=== PATIENT | female | born 1940 | race Caucasian/White ===

== ENCOUNTER 2016-10-20 20:44 | Inpatient (IN) ==
[2016-10-20] MEDS ORDERED: 0.9 % SODIUM CHLORIDE 1,000 ML IV ONE ×2 (21:26→23:47)
[2016-10-20] MEDS ORDERED: ACETAMINOPHEN 325 MG TABLET PO ONE (21:27)
--- NOTE | 2016-10-20 22:00 | Emergency Department Note ---
Nausea/Vomiting/Diarrhea HPI - General Chief complaint: Nausea/Vomiting/Diarrhea Stated complaint: diarrhea, Time Seen by Provider: 10/20/16 21:06 Source: patient Mode of arrival: EMS Limitations: no limitations - History of Present Illness HPI Narrative: 75-year-old female is brought in by EMS. She states today she is very tired and thirsty. She states that yesterday she took some MiraLAX which was 1 cap full. She states after she took the MiraLAX she had a blowout of diarrhea. She states she was having bowel movements every 2 hours. She states she also vomited approximately the same amount of times. She states today she is no longer nauseated. She has not had a bowel movement. She has not vomited. She feels as though she is dehydrated and she is very lethargic. She has not had any falls but she has had some global weakness. She has not noticed any fevers. She states her family wanted her to come in because they were "sick of cleaning up after her ". She has some diffuse abdominal pain. She has had her gallbladder and her appendix removed. - Related Data Home Medications Medication Instructions Recorded Confirmed Antiarthritic Combination No.2 900 mg PO QDAY 03/26/16 04/30/16 [Glucosamine-Chondroitin] Ascorbic Acid [Vitamin C with Gabriela 500 mg PO QDAY 03/26/16 04/30/16 Hips] Cyclobenzaprine [Flexeril] 10 mg PO TID 03/26/16 04/30/16 Esomeprazole Magnesium [Nexium] 40 mg PO DAILY 03/26/16 04/30/16 Ezetimibe [Zetia] 10 mg PO DAILY 03/26/16 04/30/16 HYDROmorphone [Dilaudid] 2 mg PO Q6 03/26/16 04/30/16 Ipratropium/Albuterol Sulfate 1 puff INH PRN PRN 03/26/16 04/30/16 [Combivent] Losartan [Cozaar] 25 mg PO DAILY 03/26/16 04/30/16 Multivitamin [Multi-Day Vitamins] 1 each PO DAILY 03/26/16 04/30/16 Polyethylene Glycol 1000 500 gm MC PRN PRN 03/26/16 04/30/16 [Polyethylene Glycol] Pregabalin [Lyrica] 25 mg PO BID 03/26/16 04/30/16 Promethazine [Phenergan] 12.5 mg PO Q4HP PRN 03/26/16 04/30/16 Sennosides/Docusate Sodium 1 each PO PRN PRN 03/26/16 04/30/16 [Senna-Docusate Sodium Tablet] amLODIPine [Norvasc] 10 mg PO QDAY 03/26/16 04/30/16 busPIRone [Buspar] 10 mg PO BID 03/26/16 04/30/16 diphenhydrAMINE [Benadryl] 25 mg PO Q4HP PRN 04/30/16 04/30/16 Previous Rx's Medication Instructions Recorded Aspirin [Ecotrin] 325 mg PO BID #28 tab.ec 05/02/16 Cane 1 each MC 3-4XD #1 each 05/02/16 HYDROcodone/APAP 10/325MG [[place] 1 - 2 tab PO Q4H PRN #60 tablet 05/02/16 10/325Mg] Nitrofurantoin Macrocrystal 100 mg PO BID #10 capsule 05/03/16 [Macrodantin] Ondansetron HCl [Zofran ODT] 4 mg SL Q4-6HP PRN #10 tablet 09/19/16 Allergies Allergy/AdvReac Type Severity Reaction Status Date / Time Sulfa (Sulfonamide Allergy Intermediate Rash Verified 09/19/16 09:50 Antibiotics) [SULFA (SULFONAMIDE ANTIBIOTICS)] codeine [CODEINE] AdvReac Intermediate Nausea/Vomi Verified 09/19/16 09:50 ting hydrocodone [HYDROCODONE] AdvReac Intermediate Nausea/Vomi Verified 09/19/16 09: 50 ting latex [LATEX] AdvReac Intermediate Rash Verified 09/19/16 09:50 Review of Systems All systems ED: reviewed and negative except as stated. Past Medical History - Past Medical History Medical history: Reports: hypertension. Denies: diabetes Surgical history ED: Reports: appendectomy, cholecystectomy, hysterectomy, orthopedic, other (rotator cuff 08/22/16), other (trouble with bowel movements since colonoscopy 10 years ago. Cannot feel when she is having a bowel movement. 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 Absent: conjunctival injection - ENT ENT exam: normal oropharynx, mucous membranes dry - Neck Neck exam: Present: normal inspection, full ROM - Chest Chest inspection: Present: normal inspection, symmetric chest wall rise - Respiratory Respiratory exam: Present: normal lung sounds bilaterally - Cardiovascular Cardiovascular exam: Present: tachycardia, normal heart sounds - Abdominal Exam Abdominal exam: Present: soft, tenderness, normal bowel sounds. Absent: guarding, rebound Abdominal tenderness: Present: diffuse (worse in the lower quadrants), mild - Extremities Exam Extremities exam: Present: normal inspection, full ROM - Neurological Exam Neurological exam: Present: alert, oriented X3, CN II-XII intact - Psychiatric Psychiatric exam: Present: flat affect (lethargic) - Skin Skin exam: Present: warm, dry, intact Course Course Narrative: Sign out was given to Dr. iMchael conte and he will take over her care. Vital Signs Temperature 99.8 F H 10/20/16 20:45 Pulse Rate 101 H 10/20/16 20:45 Respiratory Rate 22 10/20/16 20:45 Blood Pressure 126/75 10/20/16 20:45 Pulse Oximetry (%) 100 10/20/16 20:45 Temperature 99.1 F H 10/20/16 22:13 Pulse Rate 102 H 10/20/16 20:50 Respiratory Rate 22 10/20/16 21:55 Blood Pressure 119/71 10/20/16 21:46 Pulse Oximetry (%) 98 10/20/16 20:50 Nausea/Vomiting/Diarrhea - Lab Data Result diagrams: 10/20/16 21:00 10/20/16 21:00 Disposition Pt seen by TECHNICAL ACCOUNT MANAGER/PA only: No Condition: Fair Referrals: Mohan Hamm [Primary Care Provider] -
[2016-10-20 22:24] LABS: Basophils # (Auto) 0 K/mcL (0.0-0.3); Basophils % (Auto) 0 % (0.0-2.0); Eosinophils # (Auto) 0 K/mcL (0.0-0.7); Eosinophils % (Auto) 0 % (0.0-7.0); Granulocytes % (Auto) 91.7 % (38.0-78.0); Lymphocytes # (Auto) 0.6 K/mcL (1.5-4.8); Lymphocytes % (Auto) 3.6 % (15.5-49.0); Mean Cell Volume 79.4 fL (80.0-100.0); Mean Corpuscular Hemoglobin 26.2 pg (26.0-34.0); Monocytes # (Auto) 0.7 K/mcL (0.1-0.9); Monocytes % (Auto) 4.7 % (1.0-12.0); Platelet Count 270 K/mcL (140-440); RBC 6.03 M/mcL (4.00-5.20); Red Cell Distribution Width 15.9 % (11.5-14.5)
[2016-10-20 22:43] LABS: ALT/SGPT 12 U/l (0-40); Albumin 4.2 gm/dL (3.2-5.2); Albumin/Globulin Ratio 1.4 (1.0-2.3); Alkaline Phosphatase 75 U/L (39-117); Blood Urea Nitrogen 22 mg/dl (8-23)
[2016-10-20] MEDS ORDERED: LEVOFLOXACIN 500 MG/100 ML BAG IV ONE (22:48)
[2016-10-20] MEDS ORDERED: cefTRIAXone 1 GM in DEXTROSE 5% IN WATER 50 ML IV ONE (23:02)
[2016-10-21 00:02] LABS: Appearance,Urine CLEAR; Bacteria,Urine 0 /hpf (0); Bilirubin,Urine NEG (NEG); Color,Urine AMBER; Glucose,Urine (UA) NEGATIVE (NEG); Leukocyte Esterase,Urine NEG /uL (NEG); Mucus,Urine FEW /hpf (0); Nitrate,Urine NEG (NEG); Protein,Urine NEG (NEG); Specific Gravity,Urine 1.013 (1.000-1.035); Urine Blood NEG mg/dL (<0.03); Urine Hyaline Cast 2 /lpf (0-2); Urine RBC 1 /hpf (0-1); Urine Squamous Epithelial Cell < 1 /hpf (0-4); Urine WBC 1 /hpf (0-4)
--- NOTE | 2016-10-21 00:26 | Emergency Department Note ---
Nausea/Vomiting/Diarrhea HPI - General Chief complaint: Nausea/Vomiting/Diarrhea Stated complaint: diarrhea, Time Seen by Provider: 10/20/16 21:06 Source: patient Mode of arrival: EMS Limitations: no limitations - History of Present Illness HPI Narrative: Nausea and vomiting. The diarrhea had ensued following MiraLAX 2 days ago. Yesterday she had significant amounts of diarrhea and incontinence causing frustration and difficulties for her self-care and family care. She comes to the emergency room weak, not really strong on her feet, and quite fatigued in appearance. In the emergency room initially was seen by nurse practitioner whose notes I have reviewed and agree and concur. Her labs came back with elevated white count. Also an elevated lactate. Her blood pressures were mildly low. She met the criteria for sepsis. Fluids and IV antibiotics were initiated. - Related Data Home Medications Medication Instructions Recorded Confirmed Antiarthritic Combination No.2 900 mg PO QDAY 03/26/16 10/20/16 [Glucosamine-Chondroitin] Ascorbic Acid [Vitamin C with Gabriela 500 mg PO QDAY 03/26/16 10/20/16 Hips] Cyclobenzaprine [Flexeril] 10 mg PO TID 03/26/16 10/20/16 Esomeprazole Magnesium [Nexium] 40 mg PO DAILY 03/26/16 10/20/16 Ezetimibe [Zetia] 10 mg PO DAILY 03/26/16 10/20/16 HYDROmorphone [Dilaudid] 2 mg PO Q6 03/26/16 10/20/16 Ipratropium/Albuterol Sulfate 1 puff INH PRN PRN 03/26/16 10/20/16 [Combivent] Losartan [Cozaar] 25 mg PO DAILY 03/26/16 10/20/16 Multivitamin [Multi-Day Vitamins] 1 each PO DAILY 03/26/16 10/20/16 Polyethylene Glycol 1000 500 gm MC PRN PRN 03/26/16 10/20/16 [Polyethylene Glycol] Pregabalin [Lyrica] 25 mg PO BID 03/26/16 10/20/16 Promethazine [Phenergan] 12.5 mg PO Q4HP PRN 03/26/16 10/20/16 Sennosides/Docusate Sodium 1 each PO PRN PRN 03/26/16 10/20/16 [Senna-Docusate Sodium Tablet] amLODIPine [Norvasc] 10 mg PO QDAY 03/26/16 10/20/16 busPIRone [Buspar] 10 mg PO BID 03/26/16 10/20/16 diphenhydrAMINE [Benadryl] 25 mg PO Q4HP PRN 04/30/16 10/20/16 Previous Rx's Medication Instructions Recorded Aspirin [Ecotrin] 325 mg PO BID #28 tab.ec 05/02/16 Cane 1 each MC 3-4XD #1 each 05/02/16 HYDROcodone/APAP 10/325MG [[place] 1 - 2 tab PO Q4H PRN #60 tablet 05/02/16 10/325Mg] Nitrofurantoin Macrocrystal 100 mg PO BID #10 capsule 05/03/16 [Macrodantin] Ondansetron HCl [Zofran ODT] 4 mg SL Q4-6HP PRN #10 tablet 09/19/16 Allergies Allergy/AdvReac Type Severity Reaction Status Date / Time Sulfa (Sulfonamide Allergy Intermediate Rash Verified 09/19/16 09:50 Antibiotics) [SULFA (SULFONAMIDE ANTIBIOTICS)] codeine [CODEINE] AdvReac Intermediate Nausea/Vomi Verified 09/19/16 09:50 ting hydrocodone [HYDROCODONE] AdvReac Intermediate Nausea/Vomi Verified 09/19/16 09: 50 ting latex [LATEX] AdvReac Intermediate Rash Verified 09/19/16 09:50 Past Medical History - Past Medical History Medical history: Reports: hypertension. Denies: diabetes Surgical history ED: Reports: appendectomy, cholecystectomy, hysterectomy, orthopedic, other (rotator cuff 08/22/16), other (trouble with bowel movements since colonoscopy 10 years ago. Cannot feel when she is having a bowel movement. 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 Absent: tenderness, lymphadenopathy - Chest Chest inspection: Present: symmetric chest wall rise. Absent: tenderness - Expanded Respiratory Exam Location: rales: Left, Right, Lower - Cardiovascular Cardiovascular exam: Present: regular rate, normal rhythm - Abdominal Exam Abdominal exam: Present: soft, tenderness (moderately severe throughout with more tenderness on the left side.), guarding. Absent: distention, rebound, rigidity, organomegaly, mass - Extremities Exam Extremities exam: Present: normal inspection. Absent: tenderness, pedal edema - Neurological Exam Neurological exam: Present: other (uite sleepy and restful with eyes closed most of the time but obeys most commands for movements of extremities, eyes, face, etc.) - Psychiatric Psychiatric exam: Present: depressed, flat affect - Skin Skin exam: Present: dry, intact, normal color Course Vital Signs Temperature 99.8 F H 10/20/16 20:45 Pulse Rate 101 H 10/20/16 20:45 Respiratory Rate 22 10/20/16 20:45 Blood Pressure 126/75 10/20/16 20:45 Pulse Oximetry (%) 100 10/20/16 20:45 Temperature 98.9 F 10/20/16 22:58 Pulse Rate 104 H 10/21/16 01:57 Respiratory Rate 17 10/21/16 01:57 Blood Pressure 123/83 10/21/16 01:16 Pulse Oximetry (%) 79 L 10/21/16 01:57 Nausea/Vomiting/Diarrhea - [facility] Narrative Medical decision making narrative: see H&P of this second note started by myself after midnight. In summary, sepsis intervention and reexamined and image the abdomen. - Lab Data Result diagrams: 10/20/16 21:00 10/20/16 21:00 Lab Results 10/20/16 10/20/16 10/20/16 Range/Units 21:00 21:00 21:00 WBC 15.3 H (4.5-11.0) K/mcL RBC 6.03 H (4.00-5.20) M/mcL Hgb 15.8 H (12.0-15.0) g/dL Hct 47.9 (36.0-48.0) % MCV 79.4 L (80.0-100.0) fL MCH 26.2 (26.0-34.0) pg MCHC 33.0 (31.0-36.0) g/dL RDW 15.9 H (11.5-14.5) % Plt Count 270 (140-440) K/mcL MPV 8.4 (7.4-10.4) fL Gran % 91.7 H (38.0-78.0) % Lymph % (Auto) 3.6 L (15.5-49.0) % [place] % (Auto) 4.7 (1.0-12.0) % Eos % (Auto) 0 (0.0-7.0) % Baso % (Auto) 0 (0.0-2.0) % Gran # 14.1 H (1.8-8.0) K/mcL Lymph # (Auto) 0.6 L (1.5-4.8) K/mcL [place] # (Auto) 0.7 (0.1-0.9) K/mcL Eos # (Auto) 0 (0.0-0.7) K/mcL Baso # (Auto) 0 (0.0-0.3) K/mcL Differential Comment Y VBG Lactic Acid 4.4 H* (0.5-2.2) mmol/L Sodium 136 (133-145) mmol/L Potassium 3.7 (3.3-5.1) mmol/L Chloride 98 (96-108) mmol/L Carbon Dioxide 15 L (22-30) mmol/L Anion Gap 23.0 H (8-16) BUN 22 (8-23) mg/dl Creatinine 1.2 H (0.6-1.1) mg/dl GFR Calculation 44 Glucose 190 H (70-105) mg/dL Calcium 9.2 (8.6-10.4) mg/dl Total Bilirubin 1.0 (0.0-1.0) mg/dL AST 16 (0-37) U/l ALT 12 (0-40) U/l Alkaline Phosphatase 75 (39-117) U/L Total Protein 7.1 (5.9-8.4) gm/dL Albumin 4.2 (3.2-5.2) gm/dL Globulin 2.9 (2.2-3.7) gm/dL Albumin/Globulin Ratio 1.4 (1.0-2.3) Urine Color Urine Appearance Urine pH (5.0-9.0) Ur Specific [place] (1.000-1.035) Urine Protein (NEG) mg/dL Urine Glucose (UA) (NEG) mg/dL Urine Ketones (NEG) mg/dL Urine Occult Blood (<0.03) mg/dL Urine Nitrate (NEG) Urine Bilirubin (NEG) mg/dL Urine Urobilinogen (NEG) mg/dL Ur Leukocyte Esterase (NEG) /uL Urine RBC (0-1) /hpf Urine WBC (0-4) /hpf Ur Squamous Epith Cells (0-4) /hpf Urine Bacteria (0) /hpf Hyaline Casts (0-2) /lpf Urine Mucus (0) /hpf Opiates Screen Methadone Propoxyphene & Metabol Methaqualone Barbiturate Screen Phencyclidine Screen Amphetamines Screen Benzodiazepines Screen Cocaine Screen Marijuana (THC) Screen Drug Screen Specimen 10/20/16 10/20/16 Range/Units 21:00 23:23 WBC (4.5-11.0) K/mcL RBC (4.00-5.20) M/mcL Hgb (12.0-15.0) g/dL Hct (36.0-48.0) % MCV (80.0-100.0) fL MCH (26.0-34.0) pg MCHC (31.0-36.0) g/dL RDW (11.5-14.5) % Plt Count (140-440) K/mcL MPV (7.4-10.4) fL Gran % (38.0-78.0) % Lymph % (Auto) (15.5-49.0) % [place] % (Auto) (1.0-12.0) % Eos % (Auto) (0.0-7.0) % Baso % (Auto) (0.0-2.0) % Gran # (1.8-8.0) K/mcL Lymph # (Auto) (1.5-4.8) K/mcL [place] # (Auto) (0.1-0.9) K/mcL Eos # (Auto) (0.0-0.7) K/mcL Baso # (Auto) (0.0-0.3) K/mcL Differential Comment VBG Lactic Acid (0.5-2.2) mmol/L Sodium (133-145) mmol/L Potassium (3.3-5.1) mmol/L Chloride (96-108) mmol/L Carbon Dioxide (22-30) mmol/L Anion Gap (8-16) BUN (8-23) mg/dl Creatinine (0.6-1.1) mg/dl GFR Calculation Glucose (70-105) mg/dL Calcium (8.6-10.4) mg/dl Total Bilirubin (0.0-1.0) mg/dL AST (0-37) U/l ALT (0-40) U/l Alkaline Phosphatase (39-117) U/L Total Protein (5.9-8.4) gm/dL Albumin (3.2-5.2) gm/dL Globulin (2.2-3.7) gm/dL Albumin/Globulin Ratio (1.0-2.3) Urine Color [place] Urine Appearance Clear Urine pH 5.0 (5.0-9.0) Ur Specific [place] 1.013 (1.000-1.035) Urine Protein Neg (NEG) mg/dL Urine Glucose (UA) Negative (NEG) mg/dL Urine Ketones 5/tr A (NEG) mg/dL Urine Occult Blood Neg (<0.03) mg/dL Urine Nitrate Neg (NEG) Urine Bilirubin Neg (NEG) mg/dL Urine Urobilinogen 4.0 A (NEG) mg/dL Ur Leukocyte Esterase Neg (NEG) /uL Urine RBC 1 (0-1) /hpf Urine WBC 1 (0-4) /hpf Ur Squamous Epith Cells < 1 (0-4) /hpf Urine Bacteria 0 (0) /hpf Hyaline Casts 2 (0-2) /lpf Urine Mucus Few (0) /hpf Opiates Screen Cancelled Methadone Cancelled Propoxyphene & Metabol Cancelled Methaqualone Cancelled Barbiturate Screen Cancelled Phencyclidine Screen Cancelled Amphetamines Screen Cancelled Benzodiazepines Screen Cancelled Cocaine Screen Cancelled Marijuana (THC) Screen Cancelled Drug Screen Specimen Cancelled Disposition Pt seen by GL ACCOUNTANT/PA only: No Clinical Impression: Colitis, Abnormal lung sounds Sepsis Qualifiers: Sepsis type: sepsis due to unspecified organism Qualified Code(s): A41.9 - Sepsis, unspecified organism Summary: Patient's labs came back with a leukocytosis plus a lactic acid of 4.4. With these findings and some brief mild hypotension and acting as ill as she did, she met the criteria for sepsis and was initiated with Levaquin and ceftriaxone , additional IV fluids. Her abdomen was rather acute pain diffusely and a CT scan was added. Patient thought she was ALLERGIC to iodine contrast and because of her nausea apparently refused oral contrast. So the CT scan result demonstrated "suggestion of colitis, most pronounced distal, which could be infectious, inflammatory, or ischemic in nature. Superimposed distal colonic diverticulitis difficult to entirely exclude. Possible mild ileus." She continued to have quite significant diarrhea in the emergency room. A C. difficile stool test was collected. On my exam she had crackles in her bases bilaterally but was in no respiratory distress, no tachypnea, no hypoxia, no JVD, and no pretibial edema. Review of the chest x-rayto me did not demonstrate fulminant or significant signs of CHF. It was felt that this could be followed up on serial exams inpatient and was not likely to be the primary cause of sepsis. Patient had an increase in her energy level and decrease in her weakness and very tired and lethargic state and asked for some oral fluids and was given some water around [address] scan results were back, case was discussed with hospitalist, Dr. Gillis, with agreement for admission. previous note by nurse practitioner was reviewed and I agree with her initial assessment and plan. Disposition: Xfer As Inpt ([facility]) Condition: Fair Referrals: Mohan Hamm [Primary Care Provider] -
[2016-10-21] MEDS ORDERED: CYCLOBENZAPRINE 10 MG TABLET PO PRN ×3 (02:51→05:34)
[2016-10-21] MEDS ORDERED: POLYETHYLENE GLYCOL MC PRN ×3 (02:51→05:34)
[2016-10-21] MEDS ORDERED: HYDROcodone/APAP 10/325MG TABLET PO PRN ×3 (02:51→05:34)
--- NOTE | 2016-10-21 02:59 | Internal Med History&Physical ---
Medical - H&P: HPI Patient information: Note initiated : 10/21/16 at 2:59 am Patient: Miranda Santa 75 y/o F admitted on for diarrhea,. History of present illness: Ms. Santa is a 75 year old female who had 2 orthopedic procedures earlier this year, one on her knee in 1 and her shoulder. Her son reports that she has had significant pain issues since then, and the family has some concerns that she may be overusing her pain medications. She has had intermittent bouts of significant constipation, and at least one ER visit for obstipation. He notes that over the weekend, she did not seem quite right, and they thought she was overmedicated. She then took a laxative a day or 2 prior to admission, and then proceeded to have explosive diarrhea. The son lives in an apartment below the main house for his mother and uncle live, and he says they could both here her vomiting through the floor. When he went in to check on her she had had nausea vomiting and diarrhea, and had been incontinent of stool in her bed. He said she left along Ranger of diarrhea from the bed to the bathroom as she tried to make it to the bathroom. He tried to get her to come in for evaluation, but she said she would be fine if she just rested, but symptoms have persisted, and she is continued to have episodes of nausea, vomiting, diarrhea with bowel incontinence. He brought her into the emergency room late this evening for evaluation. When I saw the patient around 3 AM, she really could not give much of a history , and the family had already gone home. However the son was sitting with her this morning, when I went in to check on her for morning rounds. At the time of admission, she really could not give much of a history, and became more obtunded over the first couple of hours that she was here. She grimaced quite a bit if her abdomen was touched, but otherwise did not really respond to questions or exam. ER evaluation suggested some type of bowel inflammation, associated with leukocytosis, hypotension, elevated lactic acid. After arrival to the ICU, it became clear she was experiencing septic shock. On morning rounds today, around 09 30, she is awake and alert, and is feeling quite a bit better. She denies current fever or chills, sore throat or cough, chest pain or palpitations, shortness of breath. She is no longer having nausea. She has had several episodes of loose watery stool today. She continues to have significant abdominal tenderness, especially in the left lower quadrant area. He denies dysuria. Past medical history: Stroke Hypertension COPD Spinal stenosis Anal injury after colonoscopy(?) Knee surgery in April 2016, followed by shoulder surgery recently. Past surgical history right knee arthroscopy, left knee replacement, spinal fusion and wrist fracture, appendectomy, cholecystectomy, hysterectomy, rotator cuff surgery Medications: These are a little unclear. Benadryl 25 mg every 4 hours as needed BuSpar 10 mg p.o. twice daily Amlodipine 10 mg daily Senna plus DOS daily as needed next line Phenergan 12.5 mg every 4 hours as needed Lyrica 25 mg p.o. twice daily MiraLAX 17 g daily as needed constipation Zofran orally dissolving tablets 4 mg sublingual every 4-6 hours as needed Macrobid 100 mg p.o. twice daily? Multivitamin 1 daily Losartan 25 mg daily Combivent 1 puff 4 times daily as needed Dilaudid 2 mg every 6 hours as needed [place] 10/325 1-2 every 4 hours as needed next line Zetia 10 mg daily Nexium 40 mg daily Flexeril 10 mg p.o. 3 times daily as needed Aspirin 325 mg p.o. twice daily, the patient states she never took this that she could not tolerate it Vitamin C 500 mg daily Glucosamine with chondroitin 900 mg daily Allergies: Sulfa, codeine, hydrocodone?, latex Family history: Father had cancer and heart attack. Mother had osteoporosis and hypertension, and heart disease. 1 of her siblings had psoriasis. Her son has had melanoma. Social history: The patient lives in what sounds like a 3 level home. She has one floor, her brother has another, and her son lives in an apartment below. She smoked about 1 pack of cigarettes per day from the age of 14 until about the age of 50, when she quit. She has 1 glass of wine per day. She does not use drugs. Medical - H&P: Meds Home Medications Medication Instructions Recorded Confirmed Type Antiarthritic Combination No.2 900 mg PO QDAY 03/26/16 10/20/16 History [Glucosamine-Chondroitin] Ascorbic Acid [Vitamin C with Gabriela 500 mg PO QDAY 03/26/16 10/20/16 History Hips] Cyclobenzaprine [Flexeril] 10 mg PO TID 03/26/16 10/20/16 History Esomeprazole Magnesium [Nexium] 40 mg PO DAILY 03/26/16 10/20/16 History Ezetimibe [Zetia] 10 mg PO DAILY 03/26/16 10/20/16 History HYDROmorphone [Dilaudid] 2 mg PO Q6 03/26/16 10/20/16 History Ipratropium/Albuterol Sulfate 1 puff INH PRN PRN 03/26/16 10/20/16 History [Combivent] Losartan [Cozaar] 25 mg PO DAILY 03/26/16 10/20/16 History Multivitamin [Multi-Day Vitamins] 1 each PO DAILY 03/26/16 10/20/16 History Polyethylene Glycol 1000 500 gm MC PRN PRN 03/26/16 10/20/16 History [Polyethylene Glycol] Pregabalin [Lyrica] 25 mg PO BID 03/26/16 10/20/16 History Promethazine [Phenergan] 12.5 mg PO Q4HP PRN 03/26/16 10/20/16 History Sennosides/Docusate Sodium 1 each PO PRN PRN 03/26/16 10/20/16 History [Senna-Docusate Sodium Tablet] amLODIPine [Norvasc] 10 mg PO QDAY 03/26/16 10/20/16 History busPIRone [Buspar] 10 mg PO BID 03/26/16 10/20/16 History diphenhydrAMINE [Benadryl] 25 mg PO Q4HP PRN 04/30/16 10/20/16 History Aspirin [Ecotrin] 325 mg PO BID #28 tab.ec 05/02/16 10/20/16 Rx Cane 1 each MC 3-4XD #1 each 05/02/16 10/20/16 Rx HYDROcodone/APAP 10/325MG [[place] 1 - 2 tab PO Q4H PRN #60 tablet 05/02/16 Rx 10/325Mg] Nitrofurantoin Macrocrystal 100 mg PO BID #10 capsule 05/03/16 10/20/16 Rx [Macrodantin] Ondansetron HCl [Zofran ODT] 4 mg SL Q4-6HP PRN #10 tablet 09/19/16 10/20/16 Rx Allergies Allergy/AdvReac Type Severity Reaction Status Date / Time Sulfa (Sulfonamide Allergy Intermediate Rash Verified 09/19/16 09:50 Antibiotics) [SULFA (SULFONAMIDE ANTIBIOTICS)] codeine [CODEINE] AdvReac Intermediate Nausea/Vomi Verified 09/19/16 09:50 ting hydrocodone [HYDROCODONE] AdvReac Intermediate Nausea/Vomi Verified 09/19/16 09: 50 ting latex [LATEX] AdvReac Intermediate Rash Verified 09/19/16 09:50 Medical - H&P: Exam - Constitutional Vitals: Temp Pulse Resp BP Pulse Ox 98.9 F 104 H 17 123/83 79 L 10/20/16 22:58 10/21/16 01:57 10/21/16 01:57 10/21/16 01:16 10/21/16 01:57 T-max 99.8, currently 98.9 Respiratory rate 16-24 Heart rate 87-110, blood pressure 123/83, O2 saturation 88% on room air On exam, the patient was quite lethargic. She would briefly open her eyes to questions, and occasionally answer yes or no, but otherwise would fall asleep immediately. On telemetry, her heart rhythm was quite variable, bouncing between sinus tachycardia, atrial fibrillation, and a flutter. Head: Normocephalic, atraumatic. Ears: TMs and canals are clear. Eyes: Pupils are equal round and reactive, anicteric. She was not particularly cooperative with exam. Pharynx: Mucosa appears normal. She has an full upper plate and partial lower plate in place. Posterior pharynx appears clear. Neck: Appears supple, without obvious JVD, lymphadenopathy, bruits, thyromegaly. She does have an anterior neck scar, possibly from previous thyroid surgery. Cardiac exam: Is an irregularly irregular rhythm, with normal S1 and S2. No murmurs, rubs, gallops are noted. Lungs: Appear clear to auscultation, without obvious rales, rhonchi, wheezes. Abdomen: Is diffusely tender, with no severe tenderness in the left lower quadrant area. She does have some guarding and appears to have mild rebound. Bowel sounds are hypoactive. Extremities: Show no cyanosis, clubbing, edema. Neurologic exam: The patient is fairly obtunded, and only responds briefly to questions. Later in the evening she was responding only to pain. Exam later this morning, shows the patient to be awake and alert, calm and cooperative. Cardiac exam now shows a regular rhythm. Lungs are clear to auscultation. Abdomen is diffusely tender still, with most marked tenderness in the left lower quadrant area. She does have some guarding and some degree of rebound as well. Bowel sounds are somewhat high-pitched. Extremities show no edema. Medical - H&P: Reslt - Labs CBC & Chem 7: 10/21/16 04:20 10/21/16 04:20 Labs: Short CBC 10/20/16 Range/Units 21:00 WBC 15.3 H (4.5-11.0) K/mcL Hgb 15.8 H (12.0-15.0) g/dL Hct 47.9 (36.0-48.0) % Plt Count 270 (140-440) K/mcL BMP 10/20/16 21:00 Sodium 136 Potassium 3.7 Chloride 98 Carbon Dioxide 15 L BUN 22 Creatinine 1.2 H Glucose 190 H Calcium 9.2 Liver Function 10/20/16 Range/Units 21:00 Total Bilirubin 1.0 (0.0-1.0) mg/dL AST 16 (0-37) U/l ALT 12 (0-40) U/l Alkaline Phosphatase 75 (39-117) U/L Albumin 4.2 (3.2-5.2) gm/dL Urine 10/20/16 Range/Units 23:23 Urine Color [place] Urine Appearance Clear Urine pH 5.0 (5.0-9.0) Ur Specific [place] 1.013 (1.000-1.035) Urine Protein Neg (NEG) mg/dL Urine Glucose (UA) Negative (NEG) mg/dL October 21: Troponin is normal at less than 0.01. CBC: White blood cell count from 4:00 this morning is 15,400, hemoglobin 13, hematocrit 40, absolute granulocyte count 13,500 This morning's lactic acid has dropped to 3.7 Chemistry panel shows low bicarb of 13, elevated anion gap of 18, low total calcium of 7.9, low phosphorus of 2.6, magnesium 2.2, LDH 317, total protein 5.5 , albumin 2.9 Pro-calcitonin level is elevated at 1.8 C. difficile screen is negative. Nasal MRSA screen is negative. EKG from October 20: Shows sinus tachycardia at a rate of 100, with incomplete right bundle branch block, and ischemic appearing ST changes are noted in the lateral leads with ST depression. Slight left axis deviation. EKG at 3:11 AM: Shows sinus tachycardia at [address] changes, possibly ischemic. Atrial fibrillation has resolved. EKG at 7:15 AM today shows sinus rhythm with a burst of A. fib. Average heart rate approximately 90. Diffuse nonspecific ST-T wave changes. October 20: Urinalysis shows clear urine with pH of 5.0, specific gravity 1.013, 5 ketones, 4 urobilinogen, negative leukocyte esterase and nitrites. CBC differential: Absolute granulocyte count of 14,000, RDW 15.9 CT abdomen: Shows moderate concentric wall thickening of the transverse, descending, proximal sigmoid colon with inflammation or edema in the pericolonic fat. Mild concentric wall thickening of the terminal ileum. Findings suspicious for infectious or inflammatory colitis, such as Crohn's disease. 17 mm cyst in the left hepatic lobe and right hepatic lobes. Chest x-ray: Appears normal. Medical - H&P: A/P (1) Hypertension Current visit: Yes Status: Chronic (2) Tachycardia with greater than 160 beats per minute Current visit: Yes Status: Acute (3) Colitis Current visit: Yes Status: Acute (4) Sepsis Current visit: Yes Status: Acute - Narrative A/P Narrative: #1. Infectious disease. This patient presents with vomiting and diarrhea, leukocytosis, elevated lactic acid, tachycardia, consistent with sepsis. Admit to ICU for close monitoring Aggressive fluid resuscitation Cover with IV Zosyn plus Rocephin Blood cultures pending. stool cultures ordered. Vasopressors if needed. 2. Cardiac. -The patient denies cardiac history, but presents with intermittent atrial fibrillation/atrial flutter. Heart rate is being controlled with IV Lopressor. Hopefully fluid hydration will help as well. -EKG does show signs of rate related ischemia. Check follow-up cardiac enzymes. Consider echocardiogram. Monitor on telemetry. -Nitropaste as needed, and as tolerated. -Hypertension. Resume Norvasc, losartan, as indicated. #3. GI. -Abnormal CT, suggestive of possible inflammatory bowel disease. GI consult next 4. Neurologic. Patient presents in a fairly obtunded state, likely due to sepsis. Monitor closely. -History of stroke. Patient states she has not been taking the aspirin that was prescribed after her orthopedic surgeries. We will put her on baby aspirin for now. 5. CODE STATUS: Full. She states this morning that she would like her son, Newton, to act as her POA 6. DVT prophylaxis: Subcu Lovenox 7. Pulmonary. -History of COPD -Albuterol as needed. 8. Recent orthopedic procedures, aggravating chronic pain. Her son is concerned about possible overuse of narcotic pain medications. We will monitor while she is here. -Reported chronic pain. Continue Lyrica, Dilaudid, [place]?, Flexeril, glucosamine. Approximately 70 minutes was spent early this morning admitting this patient who presented with sepsis. Another 45 minutes or so was spent during and after morning rounds today, reviewing new labs, reexamining the patient, reviewing plan of care with the patient, and then reviewing the rest of her history with her son outside of the room.
[2016-10-21] MEDS ORDERED: MAGNESIUM HYDROXIDE 30 ML ORAL.SUSP PO PRN ×2 (03:01→05:34)
[2016-10-21] MEDS ORDERED: DOCUSATE SODIUM 100 MG CAPSULE PO PRN ×2 (03:01→05:34)
[2016-10-21] MEDS ORDERED: LORazepam 2 MG/ML VIAL IV PRN ×2 (03:01→05:34)
[2016-10-21] MEDS ORDERED: PIPERACILLIN SODIUM/TAZOBACTAM 3.375 GM in DEXTROSE 5% IN WATER 50 ML IV SCH (03:01)
[2016-10-21] MEDS ORDERED: cefTRIAXone 1 GM in DEXTROSE 5% IN WATER 50 ML IV SCH (03:01)
[2016-10-21] MEDS ORDERED: ACETAMINOPHEN 325 MG TABLET PO PRN ×2 (03:01→05:34)
[2016-10-21] MEDS ORDERED: NALOXONE HCL 0.4 MG/ML VIAL IV PRN ×2 (03:01→05:34)
[2016-10-21] MEDS ORDERED: POTASSIUM CHLORIDE 20 MEQ in DEXTROSE 5%-1/2NS 1,000 ML IV SCH ×2 (03:01→05:34)
[2016-10-21] MEDS ORDERED: METOPROLOL TARTRATE 5 MG/5 ML VIAL IV ONE (03:27)
[2016-10-21] MEDS ORDERED: NITROGLYCERIN 1 GM OINT.TOP ONE (03:31)
[2016-10-21] MEDS ORDERED: cefTRIAXone 1 GM VIAL ONE (03:31)
[2016-10-21] MEDS ORDERED: PIPERACILLIN SODIUM/TAZOBACTAM 3.375 GM VIAL IV ONE (03:32)
[2016-10-21] MEDS ORDERED: ACETAMINOPHEN 650 MG/65 ML BOTTLE IV PRN ×2 (03:35→05:34)
[2016-10-21] MEDS ORDERED: METOPROLOL TARTRATE 5 MG/5 ML VIAL IV PRN ×2 (03:36→05:34)
[2016-10-21] MEDS ORDERED: NITROGLYCERIN 1 GM OINT.TOP TD ONE (03:36)
[2016-10-21 05:02] LABS: Basophils # (Auto) 0 K/mcL (0.0-0.3); Basophils % (Auto) 0.1 % (0.0-2.0); Eosinophils # (Auto) 0 K/mcL (0.0-0.7); Eosinophils % (Auto) 0.1 % (0.0-7.0); Granulocytes % (Auto) 87.7 % (38.0-78.0); Lymphocytes # (Auto) 0.6 K/mcL (1.5-4.8); Lymphocytes % (Auto) 3.9 % (15.5-49.0); Mean Cell Volume 78.3 fL (80.0-100.0); Mean Corpuscular HGB Conc 33.4 g/dL (31.0-36.0); Mean Corpuscular Hemoglobin 26.1 pg (26.0-34.0); Monocytes # (Auto) 1.3 K/mcL (0.1-0.9); Monocytes % (Auto) 8.2 % (1.0-12.0); Platelet Count 239 K/mcL (140-440); RBC 5.21 M/mcL (4.00-5.20); Red Cell Distribution Width 15.9 % (11.5-14.5)
[2016-10-21 05:30] LABS: ALT/SGPT 11 U/l (0-40); Albumin 2.9 gm/dL (3.2-5.2); Albumin/Globulin Ratio 1.1 (1.0-2.3); Alkaline Phosphatase 56 U/L (39-117); Bilirubin,Direct < 0.2 mg/dL (0.0-0.3); Blood Urea Nitrogen 18 mg/dl (8-23); Gamma Glutamyl Transpeptidase 10 U/L (5-36); Magnesium 2.2 mg/dL (1.6-2.5)
[2016-10-21] MEDS ORDERED: MAGNESIUM SULFATE 2 GM/50 ML BAG IV ONE (05:34)
[2016-10-21] MEDS ORDERED: 0.9 % SODIUM CHLORIDE 10 ML SYRINGE IV SCH (06:00)
[2016-10-21] MEDS: 0.9 % SODIUM CHLORIDE 10 ML SYRINGE IV SCH ×3 (06:06→22:00)
--- NOTE | 2016-10-21 06:57 | XRay Report ---
CLINICAL INFORMATION: Sepsis COMPARISON: None. FINDINGS:The heart size, mediastinum and pulmonary vessels are unremarkable. The lungs are clear. There are no effusions. The bones and soft tissues are within normal limits. IMPRESSION: Normal chest. Interpreted and Authenticated by: Kannan Christian 10/21/16
[2016-10-21] MEDS: DEXTROSE 5%-1/2NS W/20MEQ KCL 1,000 ML IV SCH ×4 (08:42→19:06)
[2016-10-21] MEDS: PIPERACILLIN SODIUM/TAZOBACTAM 3.375 GM in DEXTROSE 5% IN WATER 50 ML IV SCH ×3 (08:50→17:44)
[2016-10-21] MEDS ORDERED: busPIRone 10 MG TABLET PO SCH ×2 (09:00)
[2016-10-21] MEDS ORDERED: ENOXAPARIN 40 MG/0.4 ML SYRINGE SQ SCH (09:00)
[2016-10-21] MEDS ORDERED: PREGABALIN 25 MG CAPSULE PO SCH ×2 (09:00)
[2016-10-21] MEDS ORDERED: FAMOTIDINE/PF 20 MG/2 ML VIAL IV SCH (09:00)
[2016-10-21] MEDS: ENOXAPARIN 40 MG/0.4 ML SYRINGE SQ SCH (09:13)
[2016-10-21] MEDS: PREGABALIN 25 MG CAPSULE PO SCH ×2 (09:14→21:59)
[2016-10-21] MEDS: FAMOTIDINE/PF 20 MG/2 ML VIAL IV SCH ×2 (09:14→21:59)
[2016-10-21] MEDS: busPIRone 5 MG TABLET PO SCH ×2 (09:17→21:59)
--- NOTE | 2016-10-21 09:38 | Cat Scan Report ---
CLINICAL INFORMATION: Diffuse abdominal pain and diarrhea COMPARISON: None. TECHNIQUE: 2.5 mm helical slices were obtained from the mid heart through the subtrochanteric regions. Following reconstruction, 2.5 mm sagittal, coronal and axial reformatted images were processed and reviewed at bone, lung and soft tissue windows. FINDINGS: Lung bases show subsegmental atelectasis and/or scarring in both posterior lower lobes. No effusions. The visualized heart is grossly normal in size. Images should the abdomen show a 17 mm simple cyst in the left hepatic lobe and a 11 mm low-attenuation lesion, likely a cyst, in the inferior right hepatic lobe. The remaining noncontrasted liver is normal. The gallbladder is surgically absent. Intrahepatic and common bile ducts are normal caliber. CBD is 6 mm. Scattered scarring and lobulation seen in both kidneys. No other renal lesions. The noncontrasted adrenal glands, spleen, pancreas and aorta are unremarkable. Images through the pelvis show Wagner catheter within the bladder which is decompressed. Uterus is surgical absent. Ovaries not identified presumably surgically absent or atrophic. There is moderate concentric wall thickening of the entire transverse, descending and proximal sigmoid colon. Edema or inflammation seen in the pericolonic fat - most prominent surrounding the descending segment. Small of fluid is present in the left anterior pararenal space. There is also probable concentric wall thickening of the terminal ileum - best seen on coronal image 40. The remaining small bowel bowel and stomach are grossly normal. There is no free air and no adenopathy. Bone windows show left total hip prostheses in anatomic position. No osseous abnormality. IMPRESSION: 1. Moderate concentric wall thickening of the transverse, descending and proximal sigmoid colon with inflammation or edema in the pericolonic fat. There is also mild concentric wall thickening of the terminal ileum. Findings suspicious for infectious or inflammatory colitis - such as Crohn's disease. Suggest referral to gastroenterology for colonoscopy 2. 17 mm cyst left hepatic lobe and 11 mm cyst inferior right hepatic lobe Interpreted and Authenticated by: Kannan Christian 10/21/16
[2016-10-21] MEDS ORDERED: KETAMINE 10 MG/ML ML IV PRN (17:37)
[2016-10-21] MEDS ORDERED: PROPOFOL 200 MG/20 ML VIAL IV SCH (17:45)
[2016-10-21] MEDS ORDERED: MIDAZOLAM 2 MG/2 ML VIAL IV SCH (17:45)
[2016-10-21] MEDS ORDERED: MIDAZOLAM 2 MG/2 ML VIAL ONE (18:06)
[2016-10-21] MEDS ORDERED: PROPOFOL 20 ML IV ONE (18:06)
[2016-10-22] MEDS: PIPERACILLIN SODIUM/TAZOBACTAM 3.375 GM in DEXTROSE 5% IN WATER 50 ML IV SCH ×4 (00:17→19:05)
[2016-10-22] MEDS: 0.9 % SODIUM CHLORIDE 10 ML SYRINGE IV SCH ×4 (00:18→20:40)
[2016-10-22] MEDS: DEXTROSE 5%-1/2NS W/20MEQ KCL 1,000 ML IV SCH ×4 (02:43→20:40)
[2016-10-22 05:53] LABS: Basophils # (Auto) 0 K/mcL (0.0-0.3); Basophils % (Auto) 0 % (0.0-2.0); Eosinophils # (Auto) 0 K/mcL (0.0-0.7); Eosinophils % (Auto) 0 % (0.0-7.0); Granulocytes % (Auto) 89.3 % (38.0-78.0); Lymphocytes # (Auto) 1.1 K/mcL (1.5-4.8); Lymphocytes % (Auto) 7.4 % (15.5-49.0); Mean Cell Volume 79.7 fL (80.0-100.0); Mean Corpuscular HGB Conc 33.1 g/dL (31.0-36.0); Mean Corpuscular Hemoglobin 26.4 pg (26.0-34.0); Monocytes # (Auto) 0.5 K/mcL (0.1-0.9); Monocytes % (Auto) 3.3 % (1.0-12.0); Platelet Count 228 K/mcL (140-440); RBC 4.94 M/mcL (4.00-5.20); Red Cell Distribution Width 15.9 % (11.5-14.5)
--- NOTE | 2016-10-22 06:28 | Consultation ---
DATE OF CONSULTATION: 10/21/2016 Gastroenterology Consultation Note DATE OF CONSULTATION: 10/21/2016 CHIEF COMPLAINT: Suspected colitis based on CAT scan appearance. HISTORY OF PRESENT ILLNESS: Ms. Santa is a 75-year-old white female who has no significant GI history. She says that she had a colonoscopy about 10 years ago and says that ever since then she has intermittent times where she cannot sense bowel movement and she attributes the inability to sense need for bowel movement to the colonoscopy 10 years ago. I have no further information about this. She says that from time to time she developed constipation. She does not have chronic diarrhea. Recent history is significant for having undergone rotator cuff surgery in 07/2016. She had been on [place], but this was discontinued I believe because of CODEINE allergy and more recently she has been on Dilaudid, hydromorphone on an as needed basis. The patient states that she does not use the pain medication frequently but there are ER records that say that the family has reported that they think she is using the medication too frequently. She did develop constipation in recent days. She specifically tells me that she did not have pain with the constipation, but she elected to take MiraLax, I believe on 10/19/2016. After taking some MiraLax she wound up having " of diarrhea every 2 hours and these were associated with vomiting every 2 hours. The patient has little recall after several hours of this. From the reports her family found trails of diarrhea in the home going to and from the bathroom and she apparently became " and lethargic with global weakness. The family brought her to the Emergency Room on 10/20/2016 because they could not take care of her with the ongoing diarrhea and the vomiting. On presentation she had diffuse abdominal pain at the lower abdomen and she says mostly at the left lower quadrant. She no longer has diarrhea and no longer has vomiting. She does not feel constipated. She denies any history of fever, cough, sore throat, dysuria, hematuria, etc. She underwent a CAT scan of the abdomen and pelvis which was interpreted as showing moderate concentric wall thickening throughout the transverse colon, descending colon, and proximal sigmoid colon. There was also a little bit of mild thickening at the terminal ileum. This led the radiologist to question the possibility of inflammatory bowel disease. Again, there is no prior history to suggest inflammatory bowel disease for this patient. It should be noted that during hospitalization, the patient seems to be in atrial fibrillation. She says that this is new to her. She does not feel any chest pain or palpitations. No shortness of breath. Her laboratory studies have shown hemoglobin down slightly from 15.8 to 13.6, white cell elevation at about 15,000 and lactic acid level initially 4.4 yesterday and 3.7 today with normal up to 2.2. She had an anion gap of 23 yesterday and down to 18 today. There has been no rectal bleeding reported. C. difficile was negative. Blood cultures are pending. Urinalysis was unremarkable with urine cultures still pending. PAST MEDICAL HISTORY: History of stroke, hypertension, COPD and arthritis. PAST SURGICAL HISTORY: Status post left total knee replacement, status post cholecystectomy and hysterectomy. Rotator cuff surgery a couple of months ago. SOCIAL HISTORY: No smoking since age 50. She drinks 1 glass of wine at dinner on some days of the week. FAMILY HISTORY: Father had NH. No colon cancer or inflammatory bowel disease in family history. MEDICATIONS: Listed from home had included: Benadryl as needed. BuSpar 10 mg twice daily. Amlodipine 10 mg daily. Senna plus docusate as needed for constipation. I should note that the patient denies using anything but MiraLax recently. Lyrica 25 twice daily. MiraLax as needed for constipation. See above. Zofran as needed. Macrobid 100 mg twice daily. Losartan 25 mg daily. Combivent 1 puff 4 times daily as needed. Dilaudid 2 mg every 6 hours as needed for pain. Zetia 10 mg daily. Nexium 40 mg daily. Flexeril 10 mg three times daily as needed. ALLERGIES: SULFA, HYDROCODONE, CODEINE. REVIEW OF SYSTEMS: General: She denies loss of weight. No fevers. General weakness on presentation has improved since admission. Pulmonary: No shortness of breath. She does have some morning cough on some days, but no recent change on this. Cardiac: Currently irregular rhythm, but she denies any palpitations or chest pain. Musculoskeletal: She has had multiple problems with arthritis and requiring orthopedic surgeries as noted above. Urinary: No gross hematuria, no dysuria. GI: See above. Vascular: She has a history of stroke, but there is no history of claudication or other peripheral vascular disease. Skin: No skin lesions or itching. Neurologic: She has had history of stroke. Some global weakness recently but no focal weaknesses. Psychiatric: No significant anxiety or depression reported. Hematologic: No easy bruising or easy bleeding. PHYSICAL EXAMINATION: VITAL SIGNS: Most recent blood pressure 123/77, pulse ranging between 92 and 116 per minute, irregular on monitor, temperature 99.8 most recently but at 5:00 a.m. today she did have a temperature of 100.9 degrees. GENERAL: The patient is currently awake and alert. She is sitting upright in bed. She appears in no acute distress. She does complain of pain at the left lower quadrant but she does not appear to be in significant discomfort. Her airway is patent. SKIN: Without stigmata of chronic liver disease. NECK: Without lymphadenopathy. HEENT: Sclerae are anicteric. Dentition: She has dentures. LUNGS: Clear bilaterally to auscultation. CARDIAC: Irregularly irregular with borderline tachycardia. No gallop. ABDOMEN: Soft but with at least moderate tenderness at the left lower quadrant. The other portions of the abdomen are essentially nontender other than some mild tenderness at the suprapubic area, perhaps. There is some local guarding at the left lower quadrant. No evident ascites. No hepatosplenomegaly. EXTREMITIES: Without edema. NEUROLOGIC: The patient is awake and alert. No focal motor weakness. No evidence of encephalopathy. PSYCHIATRIC: Again, awake and alert. Affect is appropriate. She acknowledges that she does not have much recall of the presentation to the emergency room and the events surrounding her GI distress at home. LABORATORY STUDIES: C. difficile negative. Today, the white count is 15,400, hemoglobin 13.6, platelets 239,000, procalcitonin level is 1.8 with normal less than 0.1. BUN is 18 with creatinine 0.8, bicarbonate 13, anion gap is 18. Lactic acid level has decreased from 4.2 yesterday to 3.7 today. Liver chemistries normal. Urinalysis yesterday essentially negative. ASSESSMENT AND RECOMMENDATION: I think the patient is demonstrating ischemic colitis. The other possibility to consider here would be a stercoral ulceration from impacted stool. If the patient had been experiencing abdominal pain with her constipation and if the CAT scan findings of thickened colon were limited to a shorter segment of the sigmoid colon for instance, I would think stercoral ulcer would be the cause of abdominal pain and CAT scan findings. However, while she had constipation at home she says that she did not have abdominal pain with this. The abdominal pain only developed after she had these " of diarrhea and repeated episodes of vomiting that left her lethargic, dehydrated and weak. The pain developed after that and the CAT scan thickening of colon is in the watershed area of the colon at the splenic flexure and sigmoid colon where ischemic colitis is most likely to be present. Ischemic colitis can also develop in a patient who has an abrupt onset of arrhythmia. Her atrial fibrillation may be contributing, although I suspect it is probably not the driving force. I am going to recommend an unprepped colonoscopy or at least sigmoidoscopy today looking for tell signs of ischemic colitis. If present, then supportive measures will be advised. If I come across impacted stool in the sigmoid colon then through the scope I will try to dislodge that to alleviate potential of stercoral ulceration. I do not think the patient has underlying inflammatory bowel disease such as Crohn's or ulcerative colitis. I am doubtful of enteric pathogens as the cause of her presentation. Further recommendations to follow based upon findings at colonoscopy. Thank you for this consultation. DENYS:lilliana Job ID: [id number] Doc ID: [id number] Kannan Monaco MD
[2016-10-22 06:32] LABS: ALT/SGPT 9 U/l (0-40); Albumin 2.8 gm/dL (3.2-5.2); Albumin/Globulin Ratio 1.3 (1.0-2.3); Alkaline Phosphatase 67 U/L (39-117); Bilirubin,Direct < 0.2 mg/dL (0.0-0.3); Blood Urea Nitrogen 8 mg/dl (8-23); Gamma Glutamyl Transpeptidase 12 U/L (5-36); Magnesium 1.9 mg/dL (1.6-2.5); Uric Acid 1.5 mg/dL (2.5-8.0)
[2016-10-22] MEDS ORDERED: POTASSIUM CHLORIDE 40 MEQ in DEXTROSE 5% IN WATER 500 ML IV ONE (07:38)
--- NOTE | 2016-10-22 07:43 | Operative Note ---
DATE OF OPERATION: 10/21/2016 PREOPERATIVE DIAGNOSIS: Lower abdominal pain and thickening of the colon in a patient who recently experienced severe volume loss by vomiting and diarrhea. POSTOPERATIVE DIAGNOSIS: Ischemic colitis involving the area from the proximal sigmoid colon through the mid transverse colon. It appears moderate to severe ischemic colitis by my exam. 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 INFORMED CONSENT: Prior to the procedure the patient provided her own informed consent. The patient was evaluated and considered medically fit for endoscopy. DESCRIPTION OF PROCEDURE: With the patient in the left lateral decubitus position, a rectal exam was performed which was unremarkable. Thereafter, a pediatric colonoscope was advanced into the rectum under direct vision. The patient was examined unprepped. From the report of recent profuse diarrhea just 2 days ago I had anticipated that there would be liquid stool in the colon, but in fact there was quite a large amount of formed brown stool throughout the rectum and sigmoid colon. I copiously irrigated to find my way through the stool. The rectal mucosa and lower sigmoid and mid sigmoid colon appeared to have normal mucosa, but once I reached the proximal sigmoid colon classic changes of ischemic colitis were identified. There are sharply defined margins of ulceration. Some the ulcers are friable and in the area of the descending colon, there appears to be some dusky areas of ischemic colitis. Nevertheless, once I had cleared away the stool pieces with water jet I was able to advance the scope quite easily to the level of the mid transverse colon. The findings of ischemic colitis were essentially confluent from the proximal sigmoid colon until I reached the mid transverse colon, approximately, and at that point the mucosa reverted back to normal again. COMPLICATIONS: None immediate. RECOMMENDATIONS AND FOLLOWUP: I am going to recommend supportive measures including allowing oral clear liquids. The goal is to repeat her volume status. Ideally, methodist of normal sinus rhythm could only be of benefit since she is in atrial fibrillation now. I think it is okay to continue Zosyn. Would perform serial abdominal exams and if there is an acute change signifying perforation then surgery would have to be performed. Hopefully, with conservative measures her ischemic colitis will resolve without any intervention. JCM:erick Job ID: [id number] Doc ID: [id number] Kannan Hamm [facility]
[2016-10-22] MEDS ORDERED: cefTRIAXone 1 GM in DEXTROSE 5% IN WATER 50 ML IV SCH (09:00)
[2016-10-22] MEDS: PREGABALIN 25 MG CAPSULE PO SCH ×2 (09:59→20:40)
[2016-10-22] MEDS: ENOXAPARIN 40 MG/0.4 ML SYRINGE SQ SCH (09:59)
[2016-10-22] MEDS: busPIRone 5 MG TABLET PO SCH ×3 (09:59→20:39)
[2016-10-22] MEDS: FAMOTIDINE/PF 20 MG/2 ML VIAL IV SCH ×2 (09:59→20:40)
--- NOTE | 2016-10-22 11:06 | Internal Med Progress Note ---
Medical - PN: Subj Patient information: Note initiated : 10/22/16 at 11:06 am Patient: Mirnada Santa 75 y/o F admitted on 10/21/16 for diarrhea,. Interval history: October 21, 2016: History of present illness: Ms. Santa is a 75 year old female who had 2 orthopedic procedures earlier this year, one on her knee in 1 and her shoulder. Her son reports that she has had significant pain issues since then, and the family has some concerns that she may be overusing her pain medications. She has had intermittent bouts of significant constipation, and at least one ER visit for obstipation. He notes that over the weekend, she did not seem quite right, and they thought she was overmedicated. She then took a laxative a day or 2 prior to admission, and then proceeded to have explosive diarrhea. The son lives in an apartment below the main house for his mother and uncle live, and he says they could both here her vomiting through the floor. When he went in to check on her she had had nausea vomiting and diarrhea, and had been incontinent of stool in her bed. He said she left along [place] of diarrhea from the bed to the bathroom as she tried to make it to the bathroom. He tried to get her to come in for evaluation, but she said she would be fine if she just rested, but symptoms have persisted, and she is continued to have episodes of nausea, vomiting, diarrhea with bowel incontinence. He brought her into the emergency room late this evening for evaluation. When I saw the patient around 3 AM, she really could not give much of a history , and the family had already gone home. However the son was sitting with her this morning, when I went in to check on her for morning rounds. At the time of admission, she really could not give much of a history, and became more obtunded over the first couple of hours that she was here. She grimaced quite a bit if her abdomen was touched, but otherwise did not really respond to questions or exam. ER evaluation suggested some type of bowel inflammation, associated with leukocytosis, hypotension, elevated lactic acid. After arrival to the ICU, it became clear she was experiencing septic shock. On morning rounds today, around 30, she is awake and alert, and is feeling quite a bit better. She denies current fever or chills, sore throat or cough, chest pain or palpitations, shortness of breath. She is no longer having nausea. She has had several episodes of loose watery stool today. She continues to have significant abdominal tenderness, especially in the left lower quadrant area. He denies dysuria. October 22: The patient did undergo colonoscopy last night, which showed obvious ischemic colitis. She has been maintained on IV fluids and a clear liquid diet since then. Today, she notes she is feeling quite a bit better. She is having much less pain, though the left abdomen remains quite tender to palpation. Otherwise she denies fever chills, chest pain or palpitations, nausea or vomiting. Diarrhea has slowed down. Wagner catheter is still in place. - Constitutional Vitals: Vital Signs Temp Pulse Resp BP Pulse Ox 99.1 F H 86 24 H 157/80 98 10/22/16 10:01 10/22/16 08:16 10/22/16 11:03 10/22/16 11:01 10/22/16 08:16 Period Temp Pulse Resp BP Sys/De [place] Cruz Pulse Ox Last 24 Hr 98.7 F-99.9 F 53-106 14-24 103-165/67-116 92-100 Intake and Output 10/21/16 10/22/16 10/22/16 21:59 05:59 13:59 Intake Total 1000 / 1000 1220 / 1220 290 / 290 Output Total 1695 / 1695 660 / 660 505 / 505 Balance -695 / -695 560 / 560 -215 / -215 Weight 144 lb Intake & Output: Intake & Output 10/21/16 10/22/16 10/22/16 21:59 05:59 13:59 Intake Total 1000 / 1000 1220 / 1220 290 / 290 Output Total 1695 / 1695 660 / 660 505 / 505 Balance -695 / -695 560 / 560 -215 / -215 Weight 144 lb Intake: IV 1000 / 1000 1100 / 1100 50 / 50 Dextrose 5%-1/2Ns W/20Meq 1000 / 1000 1000 / 1000 KCl 1,000 ml @ 150 mls/ hr IV .Q6H40M [facility] Rx#: [id number] Zosyn 3.375 gm In 100 / 100 50 / 50 Dextrose 5% in Water 50 ml @ 100 mls/hr IV Q6H [facility] Rx#:[id number] Oral 120 / 120 240 / 240 Output: Urine Catheter Amount 1695 / 1695 660 / 660 505 / 505 Other: Meal Breakfast Percent of Meal Consumed 50% # Bowel Movements 1 0 On exam, she is much brighter today. Next O's no obvious JVD. Cardiac exam shows regular rate and rhythm. Telemetry does not show any atrial fibrillation since yesterday. Lungs are clear to auscultation. Abdomen is soft. There is some guarding and moderate tenderness mainly in the left lower quadrant area, without significant rebound. Bowel sounds are active. Extremities show no significant edema. Neurologic exam is grossly nonfocal. Medical - PN: Obj Da - Labs CBC & Chem 7: 10/23/16 03:58 10/23/16 03:58 Labs: Abnormal Lab Results 10/22/16 10/22/16 10/21/16 04:17 04:17 04:20 WBC 14.9 H 15.4 H RBC 5.21 H MCV 79.7 L 78.3 L RDW 15.9 H 15.9 H Gran % 89.3 H 87.7 H Lymph % (Auto) 7.4 L 3.9 L Gran # 13.3 H 13.5 H Lymph # (Auto) 1.1 L 0.6 L [place] # (Auto) 1.3 H VBG Lactic Acid Potassium 3.2 L Carbon Dioxide 17 L Anion Gap Glucose 133 H Uric Acid 1.5 L Calcium 7.9 L Phosphorus 1.4 L Lactate Dehydrogenase Total Protein 5.0 L Albumin 2.8 L 10/21/16 10/21/16 04:20 04:20 WBC RBC MCV RDW Gran % Lymph % (Auto) Gran # Lymph # (Auto) [place] # (Auto) VBG Lactic Acid 3.7 H Potassium Carbon Dioxide 13 L Anion Gap 18.0 H Glucose 142 H Uric Acid Calcium 7.9 L Phosphorus 2.6 L Lactate Dehydrogenase 317 H Total Protein 5.5 L Albumin 2.9 L October 21: Troponin is normal at less than 0.01. CBC: White blood cell count from 4:00 this morning is 15,400, hemoglobin 13, hematocrit 40, absolute granulocyte count 13,500 This morning's lactic acid has dropped to 3.7 Chemistry panel shows low bicarb of 13, elevated anion gap of 18, low total calcium of 7.9, low phosphorus of 2.6, magnesium 2.2, LDH 317, total protein 5.5 , albumin 2.9 Pro-calcitonin level is elevated at 1.8 C. difficile screen is negative. Nasal MRSA screen is negative. EKG from October 20: Shows sinus tachycardia at a rate of 100, with incomplete right bundle branch block, and ischemic appearing ST changes are noted in the lateral leads with ST depression. Slight left axis deviation. EKG at 3:11 AM: Shows sinus tachycardia at [address] changes, possibly ischemic. Atrial fibrillation has resolved. EKG at 7:15 AM today shows sinus rhythm with a burst of A. fib. Average heart rate approximately 90. Diffuse nonspecific ST-T wave changes. October 20: Urinalysis shows clear urine with pH of 5.0, specific gravity 1.013, 5 ketones, 4 urobilinogen, negative leukocyte esterase and nitrites. CBC differential: Absolute granulocyte count of 14,000, RDW 15.9 CT abdomen: Shows moderate concentric wall thickening of the transverse, descending, proximal sigmoid colon with inflammation or edema in the pericolonic fat. Mild concentric wall thickening of the terminal ileum. Findings suspicious for infectious or inflammatory colitis, such as Crohn's disease. 17 mm cyst in the left hepatic lobe and right hepatic lobes. Chest x-ray: Appears normal. Meds: Medications Acetaminophen (Tylenol) 650 mg PO Q4-6HP PRN PRN Reason: PAIN/FEVER > 101 Hydrocodone Bitart/Acetaminophen ([place] 10/325mg) 1 - 2 tab PO Q4H PRN PRN Reason: Pain Buspirone HCl (Buspar) 10 mg PO BID [facility] Last Admin: 10/22/16 09:59 Dose: 10 mg Cyclobenzaprine HCl (Flexeril) 10 mg PO TID PRN PRN Reason: Muscle Spasm Docusate Sodium (Colace) 100 mg PO BID PRN PRN Reason: Constipation Enoxaparin Sodium (Lovenox) 40 mg SQ DAILY [facility] Last Admin: 10/22/16 09:59 Dose: 40 mg Famotidine (Pepcid) 20 mg IV Q12 [facility] Last Admin: 10/22/16 09:59 Dose: 20 mg Ceftriaxone Sodium 1 gm/ (Dextrose) 50 mls @ 100 mls/hr IV Q24H [facility] Last Admin: 10/22/16 09:59 Dose: 100 mls/hr Acetaminophen (Ofirmev) 650 mg in 65 mls @ 130 mls/hr IV Q6HP PRN PRN Reason: PAIN/FEVER > 101 Piperacillin Sod/Tazobactam (Sod 3.375 gm/ Dextrose) 50 mls @ 100 mls/hr IV Q6H [facility] Last Infusion: 10/22/16 09:01 Dose: Infused Potassium Chloride/Dextrose/Sod Cl (Dextrose 5%-1/2ns W/20meq Kcl) 1,000 mls @ 150 mls/hr IV .Q6H40M [facility] Last Admin: 10/22/16 02:43 Dose: 150 mls/hr Potassium Chloride 40 meq/ (Dextrose) 520 mls @ 130 mls/hr IV ONCE ONE Stop: 10/22/16 11:37 Last Admin: 10/22/16 09:14 Dose: 130 mls/hr Lorazepam (Ativan) 0.5 mg IV Q2HP PRN PRN Reason: ANXIETY/SEDATION Magnesium Hydroxide (Milk Of Magnesia) 30 ml PO DAILYP PRN PRN Reason: Constipation Metoprolol Tartrate (Lopressor) 5 mg IV Q4HP PRN PRN Reason: Tachyarrhythmias Last Admin: 10/21/16 14:21 Dose: 5 mg Morphine Sulfate (Morphine) 2 - 4 mg IV Q2HP PRN PRN Reason: Pain Naloxone HCl (Narcan) 0.1 mg IV Q2MIN PRN PRN Reason: Opiate Reversal Pregabalin (Lyrica) 25 mg PO BID [facility] Last Admin: 10/22/16 09:59 Dose: 25 mg Sodium Chloride (Saline Flush) 10 ml IV Q8 [facility] Last Admin: 10/22/16 06:02 Dose: 10 ml Medical - PN: A/P - Time Spent With Patient Total time spent is greater than 50% in coordination of care (as documented) at patient's floor/unit and/or counseling patient: Greater than 35 minutes (1) Hypertension Status: Chronic Current Visit: Yes (2) Tachycardia with greater than 160 beats per minute Status: Acute Current Visit: Yes (3) Colitis Status: Acute Current Visit: Yes (4) Sepsis Status: Acute Current Visit: Yes - Narrative A/P Narrative: #1. Infectious disease. This patient presents with vomiting and diarrhea, leukocytosis, elevated lactic acid, tachycardia, consistent with sepsis. -Sepsis has resolved, and vital signs are now stable. Continue IV fluids and IV antibiotics for now. Continue close monitoring. Transfer to telemetry. Cover with IV Zosyn plus Rocephin Blood cultures pending. stool cultures ordered. 2. Cardiac. -The patient denies cardiac history, but presents with intermittent atrial fibrillation/atrial flutter. Heart rate is being controlled with IV Lopressor. Atrial arrhythmias appear to have resolved. Patient has been in normal sinus rhythm since yesterday. -Hypertension. Resume Norvasc, losartan, as indicated. Blood pressures continue in the normal range off medications. #3. GI. -Abnormal CT, suggestive of possible inflammatory bowel disease,but Patient underwent colonoscopy last night, and this clearly showed ischemic colitis. -Continue IV fluids, relative bowel rest. 4. Neurologic. Patient presents in a fairly obtunded state, likely due to sepsis. Mental status appears back at baseline. -History of stroke. Patient states she has not been taking the aspirin that was prescribed after her orthopedic surgeries. We will put her on baby aspirin for now. 5. CODE STATUS: Full. She states this morning that she would like her son, Newton, to act as her POA 6. DVT prophylaxis: Subcu Lovenox 7. Pulmonary. -History of COPD -Albuterol as needed. 8. Recent orthopedic procedures, aggravating chronic pain. Her son is concerned about possible overuse of narcotic pain medications. We will monitor while she is here. -Reported chronic pain. Continue Lyrica, Dilaudid, Jones?, Flexeril, glucosamine. -Approximately 30 minutes was spent today, reviewing test results, interviewing and examining the patient, reviewing the case with GI as well as staff, and an additional 15 minutes was spent with the patient's son, who requested a meeting to review her symptoms and their causes. He seems to want to figure out how her recent surgeries and then taking pain medications and becoming constipated and then taking laxatives, might have contributed to her developing ischemic colitis. I discussed at length with him, that ischemic colitis often occurs without things such as pain medications and constipation. We did agree however that if she has been getting obstipated and not staying hydrated, which might lead to a drop in blood pressure, that could have caused lower blood pressure in various organs that were already tenuous. He is trying to think of a way that he could have someone other than his mother monitor her pain medications, as he does think this may be causing her harm in increasing her risk for injury. Social work is also working with him on possible plans. Total time approximately 45 minutes. Medical - PN: Qual - VTE Deep Vein Thrombosis/Pulmonary Embolism Present on Admission: No
[2016-10-22] MEDS ORDERED: DOCUSATE SODIUM 100 MG CAPSULE PO PRN (11:10)
[2016-10-22] MEDS ORDERED: CYCLOBENZAPRINE 10 MG TABLET PO PRN (11:10)
[2016-10-22] MEDS ORDERED: LORazepam 2 MG/ML VIAL IV PRN (11:10)
[2016-10-22] MEDS ORDERED: MAGNESIUM HYDROXIDE 30 ML ORAL.SUSP PO PRN (11:10)
[2016-10-22] MEDS ORDERED: ACETAMINOPHEN 325 MG TABLET PO PRN (11:10)
[2016-10-22] MEDS ORDERED: ACETAMINOPHEN 650 MG/65 ML BOTTLE IV PRN (11:10)
[2016-10-22] MEDS ORDERED: NALOXONE HCL 0.4 MG/ML VIAL IV PRN (11:10)
[2016-10-22] MEDS ORDERED: HYDROcodone/APAP 10/325MG TABLET PO PRN (11:10)
[2016-10-22] MEDS ORDERED: METOPROLOL TARTRATE 5 MG/5 ML VIAL IV PRN (11:10)
--- NOTE | 2016-10-22 13:18 | Internal Med Progress Note ---
Medical - PN: Subj Patient information: Note initiated : 10/22/16 at 1:15 pm Service Date, if different from initiated Date: [] Patient: Miranda Santa 75 y/o F admitted on 10/21/16 for Diarrhea/Colitis, Sepsis. Chief Complaint: [] found to have ischemic colitis Interval history: today her LLQ pain has reduced substantially but now has some mid upper and RUQ pain. No further vomiting or diarrhea. Did pass gas since colonoscopy last p.m. No fever or chills. Tolerating clear liquid diet. - Constitutional Vitals: Vital Signs Temp Pulse Resp BP Pulse Ox 98.8 F 86 15 171/87 98 10/22/16 12:01 10/22/16 08:16 10/22/16 12:28 10/22/16 12:01 10/22/16 08:16 Period Temp Pulse Resp BP Sys/[place] Cruz Pulse Ox Last 24 Hr 98.7 F-99.9 F 53-104 14-24 103-171/67-116 92-100 Intake and Output 10/21/16 10/22/16 10/22/16 21:59 05:59 13:59 Intake Total 1000 / 1000 1220 / 1220 290 / 290 Output Total 1695 / 1695 660 / 660 505 / 505 Balance -695 / -695 560 / 560 -215 / -215 Weight 144 lb Intake & Output: Intake & Output 10/21/16 10/22/16 10/22/16 21:59 05:59 13:59 Intake Total 1000 / 1000 1220 / 1220 290 / 290 Output Total 1695 / 1695 660 / 660 505 / 505 Balance -695 / -695 560 / 560 -215 / -215 Weight 144 lb Intake: IV 1000 / 1000 1100 / 1100 50 / 50 Dextrose 5%-1/2Ns W/20Meq 1000 / 1000 1000 / 1000 KCl 1,000 ml @ 150 mls/ hr IV .Q6H40M [facility] Rx#: [id number] Zosyn 3.375 gm In 100 / 100 50 / 50 Dextrose 5% in Water 50 ml @ 100 mls/hr IV Q6H [facility] Rx#:[id number] Oral 120 / 120 240 / 240 Output: Urine Catheter Amount 1695 / 1695 660 / 660 505 / 505 Other: Meal Breakfast Percent of Meal Consumed 50% # Bowel Movements 1 0 General appearance: average body habitus, cooperative, no acute distress - Eye Eye exam: Absent: scleral icterus - Cardiovascular Cardiovascular exam: Present: normal rate and rhythm - GI/Abdominal GI/Abdominal exam: Present: soft, tenderness (minimal LLQ tender; mild to moderate tender at epigastrium. No ascites evident) Medical - PN: Obj Da - Labs CBC & Chem 7: 10/22/16 04:17 10/22/16 04:17 Labs: Abnormal Lab Results 10/22/16 10/22/16 10/21/16 04:17 04:17 04:20 WBC 14.9 H 15.4 H RBC 5.21 H MCV 79.7 L 78.3 L RDW 15.9 H 15.9 H Gran % 89.3 H 87.7 H Lymph % (Auto) 7.4 L 3.9 L Gran # 13.3 H 13.5 H Lymph # (Auto) 1.1 L 0.6 L [place] # (Auto) 1.3 H VBG Lactic Acid Potassium 3.2 L Carbon Dioxide 17 L Anion Gap Glucose 133 H Uric Acid 1.5 L Calcium 7.9 L Phosphorus 1.4 L Lactate Dehydrogenase Total Protein 5.0 L Albumin 2.8 L 10/21/16 10/21/16 04:20 04:20 WBC RBC MCV RDW Gran % Lymph % (Auto) Gran # Lymph # (Auto) [place] # (Auto) VBG Lactic Acid 3.7 H Potassium Carbon Dioxide 13 L Anion Gap 18.0 H Glucose 142 H Uric Acid Calcium 7.9 L Phosphorus 2.6 L Lactate Dehydrogenase 317 H Total Protein 5.5 L Albumin 2.9 L Meds: Medications Acetaminophen (Tylenol) 650 mg PO Q4-6HP PRN PRN Reason: PAIN/FEVER > 101 Hydrocodone Bitart/Acetaminophen ([place] 10/325mg) 1 - 2 tab PO Q4H PRN PRN Reason: Pain Buspirone HCl (Buspar) 10 mg PO BID [facility] Cyclobenzaprine HCl (Flexeril) 10 mg PO TID PRN PRN Reason: Muscle Spasm Docusate Sodium (Colace) 100 mg PO BID PRN PRN Reason: Constipation Enoxaparin Sodium (Lovenox) 40 mg SQ DAILY [facility] Famotidine (Pepcid) 20 mg IV Q12 [facility] Ceftriaxone Sodium 1 gm/ (Dextrose) 50 mls @ 100 mls/hr IV Q24H [facility] Potassium Chloride/Dextrose/Sod Cl (Dextrose 5%-1/2ns W/20meq Kcl) 1,000 mls @ 100 mls/hr IV .Q10H [facility] Last Admin: 10/22/16 12:51 Dose: Not Given Acetaminophen (Ofirmev) 650 mg in 65 mls @ 130 mls/hr IV Q6HP PRN PRN Reason: PAIN/FEVER > 101 Piperacillin Sod/Tazobactam (Sod 3.375 gm/ Dextrose) 50 mls @ 100 mls/hr IV Q6H [facility] Last Admin: 10/22/16 12:50 Dose: 100 mls/hr Lorazepam (Ativan) 0.5 mg IV Q2HP PRN PRN Reason: ANXIETY/SEDATION Magnesium Hydroxide (Milk Of Magnesia) 30 ml PO DAILYP PRN PRN Reason: Constipation Metoprolol Tartrate (Lopressor) 5 mg IV Q4HP PRN PRN Reason: Tachyarrhythmias Morphine Sulfate (Morphine) 2 - 4 mg IV Q2HP PRN PRN Reason: Pain Naloxone HCl (Narcan) 0.1 mg IV Q2MIN PRN PRN Reason: Opiate Reversal Pregabalin (Lyrica) 25 mg PO BID [facility] Sodium Chloride (Saline Flush) 10 ml IV Q8 [facility] Medical - PN: A/P - Time Spent With Patient Total time spent is greater than 50% in coordination of care (as documented) at patient's floor/unit and/or counseling patient: (1) Acute ischemic colitis Status: Acute Current Visit: Yes - Narrative A/P Narrative: moderate to severe acute ischemic colitis identified at colonoscopy last night. Her LLQ tenderness is much better but she does have epigastric tenderness today (not as prominent as last night). fortunately she is back in normal sinus rhythm today. WBC decreasing a little. Would continue clear liquid diet through today. If abd pain and tenderness diminish then OK with GI to advance to full liquids tomorrow morning. Medical - PN: Qual - VTE Deep Vein Thrombosis/Pulmonary Embolism Present on Admission: No
[2016-10-23] MEDS: PIPERACILLIN SODIUM/TAZOBACTAM 3.375 GM in DEXTROSE 5% IN WATER 50 ML IV SCH ×5 (00:15→18:19)
[2016-10-23 05:06] LABS: Basophils # (Auto) 0 K/mcL (0.0-0.3); Basophils % (Auto) 0.2 % (0.0-2.0); Eosinophils # (Auto) 0.1 K/mcL (0.0-0.7); Eosinophils % (Auto) 0.7 % (0.0-7.0); Granulocytes % (Auto) 82.3 % (38.0-78.0); Lymphocytes # (Auto) 1.3 K/mcL (1.5-4.8); Lymphocytes % (Auto) 12.8 % (15.5-49.0); Mean Corpuscular HGB Conc 32.8 g/dL (31.0-36.0); Mean Corpuscular Hemoglobin 25.9 pg (26.0-34.0); Monocytes # (Auto) 0.4 K/mcL (0.1-0.9); Platelet Count 218 K/mcL (140-440); RBC 5.01 M/mcL (4.00-5.20); Red Cell Distribution Width 16.2 % (11.5-14.5)
[2016-10-23 05:21] LABS: ALT/SGPT 13 U/l (0-40); Albumin 2.7 gm/dL (3.2-5.2); Albumin/Globulin Ratio 1.1 (1.0-2.3); Alkaline Phosphatase 72 U/L (39-117); Bilirubin,Direct < 0.2 mg/dL (0.0-0.3); Blood Urea Nitrogen 3 mg/dl (8-23); Gamma Glutamyl Transpeptidase 13 U/L (5-36); Magnesium 1.8 mg/dL (1.6-2.5); Uric Acid 1.4 mg/dL (2.5-8.0)
[2016-10-23] MEDS: 0.9 % SODIUM CHLORIDE 10 ML SYRINGE IV SCH ×3 (05:52→20:46)
[2016-10-23] MEDS: DEXTROSE 5%-1/2NS W/20MEQ KCL 1,000 ML IV SCH ×3 (06:30→18:18)
[2016-10-23] MEDS ORDERED: CALCIUM GLUCONATE 4.65 MEQ/10 ML VIAL IV ONE (08:01)
[2016-10-23] MEDS ORDERED: NEUTRA PHOS 1 PACKET PO SCH (09:00)
[2016-10-23] MEDS ORDERED: cefTRIAXone 1 GM in DEXTROSE 5% IN WATER 50 ML IV SCH (09:00)
[2016-10-23] MEDS ORDERED: ENOXAPARIN 40 MG/0.4 ML SYRINGE SQ SCH (09:00)
[2016-10-23] MEDS: FAMOTIDINE/PF 20 MG/2 ML VIAL IV SCH ×2 (09:44→20:39)
[2016-10-23] MEDS: PREGABALIN 25 MG CAPSULE PO SCH ×2 (09:44→20:39)
[2016-10-23] MEDS: busPIRone 5 MG TABLET PO SCH ×2 (09:45→20:39)
[2016-10-23] MEDS ORDERED: LIDOCAINE PATCH TOPICAL PRN ×2 (10:51→17:01)
--- NOTE | 2016-10-23 10:51 | Internal Med Progress Note ---
Medical - PN: Subj Patient information: Note initiated : 10/23/16 at 10:51 am Patient: Miranda Santa 75 y/o F admitted on 10/21/16 for Diarrhea/Colitis, Sepsis. Interval history: October 21, 2016: History of present illness: Ms. Santa is a 75 year old female who had 2 orthopedic procedures earlier this year, one on her knee in 1 and her shoulder. Her son reports that she has had significant pain issues since then, and the family has some concerns that she may be overusing her pain medications. She has had intermittent bouts of significant constipation, and at least one ER visit for obstipation. He notes that over the weekend, she did not seem quite right, and they thought she was overmedicated. She then took a laxative a day or 2 prior to admission, and then proceeded to have explosive diarrhea. The son lives in an apartment below the main house for his mother and uncle live, and he says they could both here her vomiting through the floor. When he went in to check on her she had had nausea vomiting and diarrhea, and had been incontinent of stool in her bed. He said she left along [place] of diarrhea from the bed to the bathroom as she tried to make it to the bathroom. He tried to get her to come in for evaluation, but she said she would be fine if she just rested, but symptoms have persisted, and she is continued to have episodes of nausea, vomiting, diarrhea with bowel incontinence. He brought her into the emergency room late this evening for evaluation. When I saw the patient around 3 AM, she really could not give much of a history , and the family had already gone home. However the son was sitting with her this morning, when I went in to check on her for morning rounds. At the time of admission, she really could not give much of a history, and became more obtunded over the first couple of hours that she was here. She grimaced quite a bit if her abdomen was touched, but otherwise did not really respond to questions or exam. ER evaluation suggested some type of bowel inflammation, associated with leukocytosis, hypotension, elevated lactic acid. After arrival to the ICU, it became clear she was experiencing septic shock. On morning rounds today, around 09 30, she is awake and alert, and is feeling quite a bit better. She denies current fever or chills, sore throat or cough, chest pain or palpitations, shortness of breath. She is no longer having nausea. She has had several episodes of loose watery stool today. She continues to have significant abdominal tenderness, especially in the left lower quadrant area. He denies dysuria. October 22: The patient did undergo colonoscopy last night, which showed obvious ischemic colitis. She has been maintained on IV fluids and a clear liquid diet since then. Today, she notes she is feeling quite a bit better. She is having much less pain, though the left abdomen remains quite tender to palpation. Otherwise she denies fever chills, chest pain or palpitations, nausea or vomiting. Diarrhea has slowed down. Wagner catheter is still in place. October 23: -Today, the patient notes she is having fairly significant right shoulder pain. She says it is so distracting she cannot even focus on her abdomen. She thinks her abdominal pain is essentially gone, and is not having diarrhea any longer. She denies nausea or vomiting. She is not having subjective fevers or chills. She says she is hungry, and wants more to eat than just clear liquids -We discussed her home pain medications today. She says she does not take Dilaudid every day, just on the days when her shoulder is really acting up. She thinks her son is overly concerned about how much pain medication she uses, she says she really tries not to use it if she does not absolutely need it. She was having knee pain earlier in the year, but that that has mostly resolved. She continues to have significant trouble with her shoulder, but does plan on following up with orthopedics soon, and believe she is due for another procedure to help manage the pain. She has never tried topical pain medications, such as Lidoderm. -Otherwise, she denies fever chills, chest pain or shortness of breath, nausea or vomiting, dysuria. - Constitutional Vitals: Vital Signs Temp Pulse Resp BP Pulse Ox 99.6 F H 91 H 16 148/84 95 10/23/16 07:37 10/23/16 07:36 10/23/16 07:37 10/23/16 07:37 10/23/16 08:00 Period Temp Pulse Resp BP Sys/[place] Pulse Ox Last 24 Hr 98.8 F-100.0 F 72-91 15-31 146-171/71-89 82-96 Intake and Output 10/22/16 10/23/16 10/23/16 21:59 05:59 13:59 Intake Total 702 / 702 648 / 648 550 / 550 Output Total 450 / 450 1850 / 1850 900 / 900 Balance 252 / 252 -1202 / -1202 -350 / -350 Weight 144 lb Intake & Output: Intake & Output 10/22/16 10/23/16 10/23/16 21:59 05:59 13:59 Intake Total 702 / 702 648 / 648 550 / 550 Output Total 450 / 450 1850 / 1850 900 / 900 Balance 252 / 252 -1202 / -1202 -350 / -350 Weight 144 lb Intake: IV 702 / 702 448 / 448 100 / 100 Dextrose 5%-1/2Ns W/20Meq 602 / 602 398 / 398 KCl 1,000 ml @ 100 mls/ hr IV .Q10H [facility] Rx#: [id number] Zosyn 3.375 gm In 100 / 100 50 / 50 50 / 50 Dextrose 5% in Water 50 ml @ 100 mls/hr IV Q6H [facility] Rx#:[id number] Rocephin 1 gm In Dextrose 50 / 50 5% in Water 50 ml @ 100 mls/hr IV Q24H [facility] Rx#: [id number] Oral 200 / 200 450 / 450 Output: Void Amount 450 / 450 1850 / 1850 900 / 900 Other: Meal Dinner Breakfast Percent of Meal Consumed 50% 75% Feeding Ability Assist with Tray Set Up Temperature is 99.2 with T-max of 100, heart rate 81, respiratory rate 18, blood pressure 138/89, O2 saturation 98% on room air Patient is in no acute distress. She is talking and smiling. Neck is supple without obvious lymphadenopathy or JVD. Cardiac exam shows regular rate and rhythm. Lungs are clear to auscultation. Abdomen is soft and nontender, with normal bowel sounds. Extremities show no cyanosis, clubbing, edema. She does not want her right shoulder manipulated or moved, unless we can "pull on it and put it back in its socket". Medical - PN: Obj Da - Labs CBC & Chem 7: 10/23/16 03:58 10/23/16 03:58 Labs: Abnormal Lab Results 10/23/16 10/23/16 10/22/16 03:58 03:58 04:17 WBC 14.9 H RBC MCV 79.0 L 79.7 L MCH 25.9 L RDW 16.2 H 15.9 H Gran % 82.3 H 89.3 H Lymph % (Auto) 12.8 L 7.4 L Gran # 8.1 H 13.3 H Lymph # (Auto) 1.3 L 1.1 L Chase # (Auto) VBG Lactic Acid Potassium Carbon Dioxide 19 L Anion Gap BUN 3 L Glucose 113 H Uric Acid 1.4 L Calcium 7.7 L Phosphorus 1.1 L Lactate Dehydrogenase Total Protein 5.1 L Albumin 2.7 L 10/22/16 10/21/16 10/21/16 04:17 04:20 04:20 WBC 15.4 H RBC 5.21 H MCV 78.3 L MCH RDW 15.9 H Gran % 87.7 H Lymph % (Auto) 3.9 L Gran # 13.5 H Lymph # (Auto) 0.6 L Chase # (Auto) 1.3 H VBG Lactic Acid Potassium 3.2 L Carbon Dioxide 17 L 13 L Anion Gap 18.0 H BUN Glucose 133 H 142 H Uric Acid 1.5 L Calcium 7.9 L 7.9 L Phosphorus 1.4 L 2.6 L Lactate Dehydrogenase 317 H Total Protein 5.0 L 5.5 L Albumin 2.8 L 2.9 L 10/21/16 04:20 WBC RBC MCV MCH RDW Gran % Lymph % (Auto) Gran # Lymph # (Auto) Chase # (Auto) VBG Lactic Acid 3.7 H Potassium Carbon Dioxide Anion Gap BUN Glucose Uric Acid Calcium Phosphorus Lactate Dehydrogenase Total Protein Albumin October 21: Troponin is normal at less than 0.01. CBC: White blood cell count from 4:00 this morning is 15,400, hemoglobin 13, hematocrit 40, absolute granulocyte count 13,500 This morning's lactic acid has dropped to 3.7 Chemistry panel shows low bicarb of 13, elevated anion gap of 18, low total calcium of 7.9, low phosphorus of 2.6, magnesium 2.2, LDH 317, total protein 5.5 , albumin 2.9 Pro-calcitonin level is elevated at 1.8 C. difficile screen is negative. Nasal MRSA screen is negative. EKG from October 20: Shows sinus tachycardia at a rate of 100, with incomplete right bundle branch block, and ischemic appearing ST changes are noted in the lateral leads with ST depression. Slight left axis deviation. EKG at 3:11 AM: Shows sinus tachycardia at [address] changes, possibly ischemic. Atrial fibrillation has resolved. EKG at 7:15 AM today shows sinus rhythm with a burst of A. fib. Average heart rate approximately 90. Diffuse nonspecific ST-T wave changes. October 20: Urinalysis shows clear urine with pH of 5.0, specific gravity 1.013, 5 ketones, 4 urobilinogen, negative leukocyte esterase and nitrites. CBC differential: Absolute granulocyte count of 14,000, RDW 15.9 CT abdomen: Shows moderate concentric wall thickening of the transverse, descending, proximal sigmoid colon with inflammation or edema in the pericolonic fat. Mild concentric wall thickening of the terminal ileum. Findings suspicious for infectious or inflammatory colitis, such as Crohn's disease. 17 mm cyst in the left hepatic lobe and right hepatic lobes. Chest x-ray: Appears normal. Meds: Medications Acetaminophen (Tylenol) 650 mg PO Q4-6HP PRN PRN Reason: PAIN/FEVER > 101 Hydrocodone Bitart/Acetaminophen ([place] 10/325mg) 1 - 2 tab PO Q4H PRN PRN Reason: Pain Buspirone HCl (Buspar) 10 mg PO BID [facility] Last Admin: 10/23/16 09:45 Dose: Not Given Cyclobenzaprine HCl (Flexeril) 10 mg PO TID PRN PRN Reason: Muscle Spasm Docusate Sodium (Colace) 100 mg PO BID PRN PRN Reason: Constipation Enoxaparin Sodium (Lovenox) 40 mg SQ DAILY [facility] Last Admin: 10/23/16 09:44 Dose: 40 mg Famotidine (Pepcid) 20 mg IV Q12 [facility] Last Admin: 10/23/16 09:44 Dose: 20 mg Ceftriaxone Sodium 1 gm/ (Dextrose) 50 mls @ 100 mls/hr IV Q24H [facility] Last Infusion: 10/23/16 10:35 Dose: Infused Potassium Chloride/Dextrose/Sod Cl (Dextrose 5%-1/2ns W/20meq Kcl) 1,000 mls @ 100 mls/hr IV .Q10H [facility] Last Admin: 10/23/16 06:30 Dose: 100 mls/hr Acetaminophen (Ofirmev) 650 mg in 65 mls @ 130 mls/hr IV Q6HP PRN PRN Reason: PAIN/FEVER > 101 Piperacillin Sod/Tazobactam (Sod 3.375 gm/ Dextrose) 50 mls @ 100 mls/hr IV Q6H [facility] Last Infusion: 10/23/16 06:30 Dose: Infused Lorazepam (Ativan) 0.5 mg IV Q2HP PRN PRN Reason: ANXIETY/SEDATION Magnesium Hydroxide (Milk Of Magnesia) 30 ml PO DAILYP PRN PRN Reason: Constipation Metoprolol Tartrate (Lopressor) 5 mg IV Q4HP PRN PRN Reason: Tachyarrhythmias Morphine Sulfate (Morphine) 2 - 4 mg IV Q2HP PRN PRN Reason: Pain Last Admin: 10/23/16 10:15 Dose: 4 mg Naloxone HCl (Narcan) 0.1 mg IV Q2MIN PRN PRN Reason: Opiate Reversal Potassium/Phosphorus/Sodium (Neutra Phos) 2 packet PO BID [facility] Last Admin: 10/23/16 09:44 Dose: 2 packet Pregabalin (Lyrica) 25 mg PO BID [facility] Last Admin: 10/23/16 09:44 Dose: 25 mg Sodium Chloride (Saline Flush) 10 ml IV Q8 [facility] Last Admin: 10/23/16 05:52 Dose: Not Given Medical - PN: A/P - Time Spent With Patient Total time spent is greater than 50% in coordination of care (as documented) at patient's floor/unit and/or counseling patient: 25 - 35 minutes (1) Hypertension Status: Chronic Current Visit: Yes (2) Tachycardia with greater than 160 beats per minute Status: Acute Current Visit: Yes (3) Colitis Status: Acute Current Visit: Yes (4) Sepsis Status: Acute Current Visit: Yes - Narrative A/P Narrative: #1. Infectious disease. This patient presents with vomiting and diarrhea, leukocytosis, elevated lactic acid, tachycardia, consistent with sepsis. -Sepsis has resolved, and vital signs are now stable. Total white blood cell count is back to normal, and granulocyte count is near normal, but the patient continues to run low-grade fevers. The reason for this is uncertain. Diarrhea has essentially resolved, so it would appear her colitis does not have an infectious etiology, although she has been maintained on antibiotics since admission as well. Continue IV fluids and IV antibiotics for now. Continue close monitoring. Cover with IV Zosyn plus Rocephin Blood cultures pending. stool cultures ordered. 2. Cardiac. -The patient denies cardiac history, but presents with intermittent atrial fibrillation/atrial flutter. Atrial arrhythmias appear to have resolved. Patient has been in normal sinus rhythm since day before yesterday. Transfer to [facility]. -Hypertension. Resume Norvasc, losartan, as indicated. Blood pressures continue in the normal range off medications. Continue to hold blood pressure medications for now. #3. GI. -Colonoscopy showed ischemic colitis. -Continue IV fluids, relative bowel rest. We will advance her to full liquids this morning, and then as tolerated. 4. Neurologic. Patient presented in a fairly obtunded state, likely due to sepsis. Mental status appears back at baseline. -History of stroke. Patient states she has not been taking the aspirin that was prescribed after her orthopedic surgeries. We will put her on baby aspirin for now. 5. CODE STATUS: Full. She states this morning that she would like her son, Newton, to act as her POA 6. DVT prophylaxis: Subcu Lovenox 7. Pulmonary. -History of COPD -Albuterol as needed. 8. Recent orthopedic procedures, aggravating chronic pain. Her son is concerned about possible overuse of narcotic pain medications. -She does not appear to be overusing pain medications here. Since she uses pain meds intermittently, I do not think a fentanyl patch would be appropriate. She is having more right shoulder pain today, so I suggested we try a Lidoderm patch. -Reported chronic pain. Continue Lyrica, Dilaudid, [place]?, Flexeril, glucosamine. -Physical therapy and case management have recommended home health at discharge , as well as probable toilet lift to help with mobility, regarding her knee and shoulder problems. 9. Renal. Patient did drop both calcium and phosphorus levels. These will be replaced IV and p.o., respectively. -Approximately 35 minutes was spent today, reviewing test results, interviewing and examining the patient, reviewing case with staff and writing orders. Medical - PN: Qual - VTE Deep Vein Thrombosis/Pulmonary Embolism Present on Admission: No
[2016-10-23] MEDS ORDERED: ONDANSETRON 4 MG/2 ML VIAL IV PRN (16:16)
[2016-10-23] MEDS ORDERED: CYCLOBENZAPRINE 10 MG TABLET PO PRN (17:01)
[2016-10-23] MEDS ORDERED: LORazepam 2 MG/ML VIAL IV PRN (17:01)
[2016-10-23] MEDS ORDERED: NALOXONE HCL 0.4 MG/ML VIAL IV PRN (17:01)
[2016-10-23] MEDS ORDERED: METOPROLOL TARTRATE 5 MG/5 ML VIAL IV PRN (17:01)
[2016-10-23] MEDS ORDERED: ACETAMINOPHEN 650 MG/65 ML BOTTLE IV PRN (17:01)
[2016-10-23] MEDS ORDERED: DOCUSATE SODIUM 100 MG CAPSULE PO PRN (17:01)
[2016-10-23] MEDS ORDERED: HYDROcodone/APAP 10/325MG TABLET PO PRN (17:01)
[2016-10-23] MEDS ORDERED: MAGNESIUM HYDROXIDE 30 ML ORAL.SUSP PO PRN (17:01)
[2016-10-23] MEDS ORDERED: ACETAMINOPHEN 325 MG TABLET PO PRN (17:01)
[2016-10-23] MEDS: NEUTRA PHOS 1 PACKET PO SCH (20:39)
[2016-10-24] MEDS: PIPERACILLIN SODIUM/TAZOBACTAM 3.375 GM in DEXTROSE 5% IN WATER 50 ML IV SCH ×3 (00:15→11:57)
[2016-10-24] MEDS: DEXTROSE 5%-1/2NS W/20MEQ KCL 1,000 ML IV SCH (05:19)
[2016-10-24 05:53] LABS: Basophils # (Auto) 0 K/mcL (0.0-0.3); Basophils % (Auto) 0.3 % (0.0-2.0); Eosinophils # (Auto) 0.2 K/mcL (0.0-0.7); Eosinophils % (Auto) 1.8 % (0.0-7.0); Granulocytes % (Auto) 79.2 % (38.0-78.0); Lymphocytes # (Auto) 1.1 K/mcL (1.5-4.8); Lymphocytes % (Auto) 13.3 % (15.5-49.0); Mean Cell Volume 79.1 fL (80.0-100.0); Mean Corpuscular HGB Conc 33.4 g/dL (31.0-36.0); Mean Corpuscular Hemoglobin 26.4 pg (26.0-34.0); Monocytes # (Auto) 0.5 K/mcL (0.1-0.9); Monocytes % (Auto) 5.4 % (1.0-12.0); Platelet Count 246 K/mcL (140-440); RBC 4.71 M/mcL (4.00-5.20); Red Cell Distribution Width 16.3 % (11.5-14.5)
[2016-10-24] MEDS: 0.9 % SODIUM CHLORIDE 10 ML SYRINGE IV SCH ×2 (06:09→16:40)
[2016-10-24 06:20] LABS: ALT/SGPT 24 U/l (0-40); Albumin 2.6 gm/dL (3.2-5.2); Albumin/Globulin Ratio 1.1 (1.0-2.3); Alkaline Phosphatase 73 U/L (39-117); Bilirubin,Direct < 0.2 mg/dL (0.0-0.3); Blood Urea Nitrogen 3 mg/dl (8-23); Gamma Glutamyl Transpeptidase 23 U/L (5-36); Magnesium 1.7 mg/dL (1.6-2.5); Uric Acid 1.5 mg/dL (2.5-8.0)
[2016-10-24] MEDS: CALCIUM CARBONATE 500 MG TAB.CHEW CHEWED SCH ×2 (08:20→11:57)
[2016-10-24] MEDS ORDERED: ENOXAPARIN 40 MG/0.4 ML SYRINGE SQ SCH (09:00)
[2016-10-24] MEDS ORDERED: ASPIRIN 81 MG TAB.CHEW PO SCH (09:00)
[2016-10-24] MEDS ORDERED: cefTRIAXone 1 GM in DEXTROSE 5% IN WATER 50 ML IV SCH (09:00)
[2016-10-24] MEDS ORDERED: ASPIRIN 325 MG ENTERIC COATED TABLET PO SCH (09:00)
[2016-10-24] MEDS: busPIRone 5 MG TABLET PO SCH (09:10)
[2016-10-24] MEDS: FAMOTIDINE/PF 20 MG/2 ML VIAL IV SCH (09:11)
[2016-10-24] MEDS: NEUTRA PHOS 1 PACKET PO SCH (09:11)
[2016-10-24] MEDS: PREGABALIN 25 MG CAPSULE PO SCH (09:11)
--- NOTE | 2016-10-24 11:39 | Discharge Summary ---
Medical - DS: Prov Patient information: Note initiated : 10/24/16 at 11:39 am Service Date, if different from initiated Date: [] Patient: Miranda Santa 75 y/o F admitted on 10/21/16 for Diarrhea/Colitis, Sepsis. Chief Complaint: [] Date of admission: 10/21/16 02:48 Discharge date: 10/24/16 Primary care physician: Mohan Hamm Admitting clinician: Valentina Ramírez Consults: 10/21/16 16:50 Consult to Physician [CONS] Routine Comment: Consulting Provider: Kannan Monaco Reason For Exam: Physician to Consult Attending physician on discharge: Valentina Ramírez Medical - DS: Meds - Discharge Medications Prescriptions: Lidocaine [Lidoderm] 1 patch TOPICAL DAILY@1000 PRN #30 patch PRN Reason: Pain Active and Home Medications: Discharge medications: Antiarthritic Combination No.2 [Glucosamine-Chondroitin] 900 mg PO QDAY ] Ascorbic Acid [Vitamin C with Gabriela Hips] 500 mg PO QDAY Cyclobenzaprine [Flexeril] 10 mg PO TID 03/26/16 Esomeprazole Magnesium [Nexium] 40 mg PO DAILY Ezetimibe [Zetia] 10 mg PO DAILY 03/26/16 HYDROmorphone [Dilaudid] 2 mg PO Q6 03/26/16 Ipratropium/Albuterol Sulfate [Combivent] 1 puff INH PRN PRN Losartan [Cozaar] 25 mg PO DAILY 03/26/16 Multivitamin [Multi-Day Vitamins] 1 each PO DAILY Polyethylene Glycol 1000 [Polyethylene Glycol] 500 gm MC PRN Pregabalin [Lyrica] 25 mg PO BID 03/26/16 Promethazine [Phenergan] 12.5 mg PO Q4HP PRN Sennosides/Docusate Sodium [Senna-Docusate Sodium Tablet] 1 each PO PRN amLODIPine [Norvasc] 10 mg PO QDAY 03/26/16 [ busPIRone [Buspar] 10 mg PO BID 03/26/16 Please STOP diphenhydrAMINE [Benadryl] 25 mg PO Q4HP PRN 04/30/16 [History Confirmed 10/20/16 Last Taken 05/01/16] Aspirin 81 mg a day Cane 1 each MC 3-4XD #1 each 05/02/16 [Rx Confirmed 10/20/16 Last Taken Unknown] Please stop: Nitrofurantoin Macrocrystal [Macrodantin] 100 mg PO BID Ondansetron HCl [Zofran ODT] 4 mg SL Q4-6HP PRN Previous home Medications Antiarthritic Combination No.2 [Glucosamine-Chondroitin] 900 mg PO QDAY [History Confirmed 10/20/16 Last Taken 05/01/16] Ascorbic Acid [Vitamin C with Gabriela Hips] 500 mg PO QDAY 03/26/16 [History Confirmed 10/20/16 Last Taken 05/01/16] Cyclobenzaprine [Flexeril] 10 mg PO TID 03/26/16 [History Confirmed 10/20/16 Last Taken 05/02/16 05:30] Esomeprazole Magnesium [Nexium] 40 mg PO DAILY 03/26/16 [History Confirmed 10/20 Last Taken 05/01/16] Ezetimibe [Zetia] 10 mg PO DAILY 03/26/16 [History Confirmed 10/20/16 Last Taken 05/01/16] HYDROmorphone [Dilaudid] 2 mg PO Q6 03/26/16 [History Confirmed 10/20/16 Last Taken 05/02/16 05:30] Ipratropium/Albuterol Sulfate [Combivent] 1 puff INH PRN PRN 03/26/16 [History Confirmed 10/20/16 Last Taken 05/01/16] Losartan [Cozaar] 25 mg PO DAILY 03/26/16 [History Confirmed 10/20/16 Last Taken 05/02/16 05:30] Multivitamin [Multi-Day Vitamins] 1 each PO DAILY 03/26/16 [History Confirmed Last Taken 05/01/16] Polyethylene Glycol 1000 [Polyethylene Glycol] 500 gm MC PRN PRN 03/26/16 [ History Confirmed 10/20/16 Last Taken 05/01/16] Pregabalin [Lyrica] 25 mg PO BID 03/26/16 [History Confirmed 10/20/16 Last Taken 05/02/16 05:30] Promethazine [Phenergan] 12.5 mg PO Q4HP PRN 03/26/16 [History Confirmed Last Taken 05/01/16] Sennosides/Docusate Sodium [Senna-Docusate Sodium Tablet] 1 each PO PRN PRN [History Confirmed 10/20/16 Last Taken 05/01/16] amLODIPine [Norvasc] 10 mg PO QDAY 03/26/16 [History Confirmed 10/20/16 Last Taken 05/02/16 05:30] busPIRone [Buspar] 10 mg PO BID 03/26/16 [History Confirmed 10/20/16 Last Taken 05/01/16] diphenhydrAMINE [Benadryl] 25 mg PO Q4HP PRN 04/30/16 [History Confirmed Last Taken 05/01/16] Aspirin [Ecotrin] 325 mg PO BID #28 tab.ec 05/02/16 [Rx Confirmed 10/20/16 Last Taken Unknown] Cane 1 each MC 3-4XD #1 each 05/02/16 [Rx Confirmed 10/20/16 Last Taken Unknown] Nitrofurantoin Macrocrystal [Macrodantin] 100 mg PO BID #10 capsule 05/03/16 [ Rx Confirmed 10/20/16 Last Taken Unknown] Ondansetron HCl [Zofran ODT] 4 mg SL Q4-6HP PRN #10 tablet 09/19/16 [Rx Confirmed 10/20/16 Last Taken Unknown] Medical - DS: Hosp Hospital course: Mr. Santa is a 75 year old F October 21, 2016: History of present illness: Ms. Santa is a 75 year old female who had 2 orthopedic procedures earlier this year, one on her knee in 1 and her shoulder. Her son reports that she has had significant pain issues since then, and the family has some concerns that she may be overusing her pain medications. She has had intermittent bouts of significant constipation, and at least one ER visit for obstipation. He notes that over the weekend, she did not seem quite right, and they thought she was overmedicated. She then took a laxative a day or 2 prior to admission, and then proceeded to have explosive diarrhea. The son lives in an apartment below the main house for his mother and uncle live, and he says they could both here her vomiting through the floor. When he went in to check on her she had had nausea vomiting and diarrhea, and had been incontinent of stool in her bed. He said she left along [place] of diarrhea from the bed to the bathroom as she tried to make it to the bathroom. He tried to get her to come in for evaluation, but she said she would be fine if she just rested, but symptoms have persisted, and she is continued to have episodes of nausea, vomiting, diarrhea with bowel incontinence. He brought her into the emergency room late this evening for evaluation. When I saw the patient around 3 AM, she really could not give much of a history , and the family had already gone home. However the son was sitting with her this morning, when I went in to check on her for morning rounds. At the time of admission, she really could not give much of a history, and became more obtunded over the first couple of hours that she was here. She grimaced quite a bit if her abdomen was touched, but otherwise did not really respond to questions or exam. ER evaluation suggested some type of bowel inflammation, associated with leukocytosis, hypotension, elevated lactic acid. After arrival to the ICU, it became clear she was experiencing septic shock. On morning rounds today, around 30, she is awake and alert, and is feeling quite a bit better. She denies current fever or chills, sore throat or cough, chest pain or palpitations, shortness of breath. She is no longer having nausea. She has had several episodes of loose watery stool today. She continues to have significant abdominal tenderness, especially in the left lower quadrant area. He denies dysuria. October 22: The patient did undergo colonoscopy last night, which showed obvious ischemic colitis. She has been maintained on IV fluids and a clear liquid diet since then. Today, she notes she is feeling quite a bit better. She is having much less pain, though the left abdomen remains quite tender to palpation. Otherwise she denies fever chills, chest pain or palpitations, nausea or vomiting. Diarrhea has slowed down. Wagner catheter is still in place. October 23: -Today, the patient notes she is having fairly significant right shoulder pain. She says it is so distracting she cannot even focus on her abdomen. She thinks her abdominal pain is essentially gone, and is not having diarrhea any longer. She denies nausea or vomiting. She is not having subjective fevers or chills. She says she is hungry, and wants more to eat than just clear liquids -We discussed her home pain medications today. She says she does not take Dilaudid every day, just on the days when her shoulder is really acting up. She thinks her son is overly concerned about how much pain medication she uses, she says she really tries not to use it if she does not absolutely need it. She was having knee pain earlier in the year, but that that has mostly resolved. She continues to have significant trouble with her shoulder, but does plan on following up with orthopedics soon, and believe she is due for another procedure to help manage the pain. She has never tried topical pain medications, such as Lidoderm. -Otherwise, she denies fever chills, chest pain or shortness of breath, nausea or vomiting, dysuria. October 24: Hospital course: The patient was admitted with apparent sepsis. She was treated aggressively with IV fluids and IV antibiotics. Follow-up GI evaluation showed definite ischemic colitis. She was placed on bowel rest, and then diet gradually advanced. She tolerated a soft diet for breakfast and lunch today, without abdominal pain, nausea, vomiting, diarrhea. She is very anxious to return home , so will be discharged this afternoon. Dr. Brand thinks she should follow-up with him for a follow-up colonoscopy in 4-6 weeks. Daily aspirin has been added to her medications. She has continued to run occasional low-grade fever, for uncertain reasons. White blood cell count has been trending downward, and is now normal. Calcium and phosphorus were low, and these were replaced.. There were numerous conversations with her son, as he is concerned she is overusing her pain medications. Patient is quite adamant that she is not, and that she only takes them on days when her shoulder is really bothering her, and some days not at all. We had discussed possible fentanyl patch to even out her pain meds, but she does not seem to need them every day, so I do not think that would be an appropriate choice at this time. She will be following up with orthopedics to look into further treatment for her shoulder. On exam, she is awake and alert. Neck is supple without obvious lymphadenopathy or JVD. Cardiac exam shows regular rate and rhythm. Lungs are clear to auscultation. Abdomen is soft and nontender with normal bowel sounds. Extremities show no edema. Assessment and plan: #1. Infectious disease. This patient presents with vomiting and diarrhea, leukocytosis, elevated lactic acid, tachycardia, consistent with sepsis. -Sepsis has resolved, and vital signs are now stable. Total white blood cell count is back to normal, and granulocyte count is near normal, but the patient continues to run low-grade fevers. The reason for this is uncertain. Diarrhea has essentially resolved, so it would appear her colitis does not have an infectious etiology, although she has been maintained on antibiotics since admission as well. She will be discharged home today, to follow a light/soft diet. She is to follow-up with GI in 4-6 weeks. 2. Cardiac. -The patient denies cardiac history, but presents with intermittent atrial fibrillation/atrial flutter. Atrial arrhythmias appear to have resolved. Patient has been in normal sinus rhythm since 2 days ago. -Hypertension. Resume Norvasc, losartan, as indicated. Blood pressures continue in the normal range off medications. She can resume her usual medications at this time. #3. GI. -Colonoscopy showed ischemic colitis. Follow-up with GI 6 weeks. 4. Neurologic. Patient presented in a fairly obtunded state, likely due to sepsis. Mental status appears back at baseline. -History of stroke. Patient states she has not been taking the aspirin that was prescribed after her orthopedic surgeries. We will put her on baby aspirin for now. 5. CODE STATUS: Full. She states this morning that she would like her son, Newton, to act as her POA 6. DVT prophylaxis: Subcu Lovenox 7. Pulmonary. -History of COPD -Albuterol as needed. 8. Recent orthopedic procedures, aggravating chronic pain. Her son is concerned about possible overuse of narcotic pain medications. -She does not appear to be overusing pain medications here. Since she uses pain meds intermittently, I do not think a fentanyl patch would be appropriate. She is having more right shoulder pain today, so I suggested we try a Lidoderm patch. -Reported chronic pain. Continue Lyrica, Dilaudid, Clifford?, Flexeril, glucosamine. -Physical therapy and case management have recommended home health at discharge , as well as probable toilet lift to help with mobility, regarding her knee and shoulder problems. 9. Renal. Patient did drop both calcium and phosphorus levels. These were replaced IV and p.o., respectively. -Approximately 35 minutes was spent today, reviewing test results, interviewing and examining the patient, reviewing case with staff and writing orders. Discharge diagnosis: Ischemic colitis. Transient atrial fibrillation, flutter. Ongoing shoulde - Time Spent with Patient Total time spent providing and/or coordinating discharge services: Greater than 30 minutes Medical - DS: Exam - Constitutional Vitals: Vital Signs Temp Pulse Pulse Resp BP BP BP 10/24/16 07:24 97.7 F 84 16 162/91 10/24/16 04:00 98.1 F 81 18 132/86 10/24/16 00:00 98.4 F 93 H 20 148/88 10/23/16 19:49 99.0 F H 82 18 177/80 10/23/16 16:06 98.8 F 16 164/78 10/23/16 12:11 99.2 F H 86 18 138/89 Pulse Ox 10/24/16 07:24 96 10/24/16 04:00 95 10/24/16 00:00 94 10/23/16 19:49 93 10/23/16 16:06 97 10/23/16 12:11 98 Intake and Output 10/23/16 10/24/16 10/24/16 21:59 05:59 13:59 Intake Total 1120 / 1120 1300 / 1300 50 / 50 Output Total 650 / 650 Balance 470 / 470 1300 / 1300 50 / 50 Intake: IV 100 / 100 1050 / 1050 50 / 50 Dextrose 5%-1/2Ns W/20Meq 1000 / 1000 KCl 1,000 ml @ 100 mls/ hr IV .Q10H [facility]OVANA Rx#: [id number] Zosyn 3.375 gm In 100 / 100 50 / 50 Dextrose 5% in Water 50 ml @ 100 mls/hr IV Q6H [facility] Rx#:[id number] Rocephin 1 gm In Dextrose 50 / 50 5% in Water 50 ml @ 100 mls/hr IV Q24H [facility]OVANA Rx#: [id number] Oral 1020 / 1020 250 / 250 Output: Void Amount 650 / 650 Other: Meal Dinner Breakfast Percent of Meal Consumed 25% 50% Feeding Ability Independent Independent # Voids 1 1 Weight 154 lb 150 lb Medical - DS: Data Labs on day of discharge: Labs from last 24 hours 10/24/16 10/24/16 04:24 04:24 WBC 8.4 RBC 4.71 Hgb 12.4 Hct 37.2 MCV 79.1 L MCH 26.4 MCHC 33.4 RDW 16.3 H Plt Count 246 MPV 7.7 Gran % 79.2 H Lymph % (Auto) 13.3 L [place] % (Auto) 5.4 Eos % (Auto) 1.8 Baso % (Auto) 0.3 Gran # 6.7 Lymph # (Auto) 1.1 L [place] # (Auto) 0.5 Eos # (Auto) 0.2 Baso # (Auto) 0 Sodium 137 Potassium 3.9 Chloride 106 Carbon Dioxide 22 Anion Gap 9.0 BUN 3 L Creatinine 0.9 GFR Calculation 63 Glucose 112 H Uric Acid 1.5 L Calcium 7.9 L Phosphorus 2.7 Magnesium 1.7 Total Bilirubin 0.4 Direct Bilirubin < 0.2 GGT 23 AST 30 ALT 24 Alkaline Phosphatase 73 Lactate Dehydrogenase 207 Total Protein 4.9 L Albumin 2.6 L Globulin 2.3 Albumin/Globulin Ratio 1.1 Triglycerides 105 October 21: Troponin is normal at less than 0.01. CBC: White blood cell count from 4:00 this morning is 15,400, hemoglobin 13, hematocrit 40, absolute granulocyte count 13,500 This morning's lactic acid has dropped to 3.7 Chemistry panel shows low bicarb of 13, elevated anion gap of 18, low total calcium of 7.9, low phosphorus of 2.6, magnesium 2.2, LDH 317, total protein 5.5 , albumin 2.9 Pro-calcitonin level is elevated at 1.8 C. difficile screen is negative. Nasal MRSA screen is negative. EKG from October 20: Shows sinus tachycardia at a rate of 100, with incomplete right bundle branch block, and ischemic appearing ST changes are noted in the lateral leads with ST depression. Slight left axis deviation. EKG at 3:11 AM: Shows sinus tachycardia at [address] changes, possibly ischemic. Atrial fibrillation has resolved. EKG at 7:15 AM today shows sinus rhythm with a burst of A. fib. Average heart rate approximately 90. Diffuse nonspecific ST-T wave changes. October 20: Lactic acid elevated at 4.4 Urinalysis shows clear urine with pH of 5.0, specific gravity 1.013, 5 ketones, 4 urobilinogen, negative leukocyte esterase and nitrites. CBC differential: Absolute granulocyte count of 14,000, RDW 15.9 CT abdomen: Shows moderate concentric wall thickening of the transverse, descending, proximal sigmoid colon with inflammation or edema in the pericolonic fat. Mild concentric wall thickening of the terminal ileum. Findings suspicious for infectious or inflammatory colitis, such as Crohn's disease. 17 mm cyst in the left hepatic lobe and right hepatic lobes. Chest x-ray: Appears normal. Medical - DS: A/P - Patient/Caregiver Discharge Instructions Activity: as per physical therapy Diet: Low Sodium (2gm) (Soft, bland diet for the next few days.) Additional Instructions: 1. Ischemic colitis. Your bowel was not getting enough blood and oxygen to function well. He start taking baby aspirin 81 mg every day. Please follow a soft, bland diet for the next few days. Next Please follow-up with Dr. Brand of GI in 4-6 weeks for follow-up colonoscopy. 2. Atrial fibrillation and flutter. He had this arrhythmia when you were admitted this time. It resolved spontaneously. Please follow-up with your regular doctor within the next week, and also let him know if you are having any palpitations, chest pain, shortness of breath. Please resume your usual blood pressure medications. Please also stay well hydrated. 3. For your ongoing shoulder pain, please follow-up with orthopedics. I have prescribed a Lidoderm patch to use on your shoulder for the days that it is bothering you. You can use this for 12 out of every 24 hours. We have asked home health to come out to your home and do an evaluation, regarding your ongoing pain issues and difficulty getting up after even sitting down. We have also ordered a toilet riser so that you do not have as much trouble getting up from the toilet. Discharge medications: Antiarthritic Combination No.2 [Glucosamine-Chondroitin] 900 mg PO QDAY ] Ascorbic Acid [Vitamin C with Gabriela Hips] 500 mg PO QDAY Cyclobenzaprine [Flexeril] 10 mg PO TID 03/26/16 Esomeprazole Magnesium [Nexium] 40 mg PO DAILY Ezetimibe [Zetia] 10 mg PO DAILY 03/26/16 HYDROmorphone [Dilaudid] 2 mg PO Q6 03/26/16 Ipratropium/Albuterol Sulfate [Combivent] 1 puff INH PRN PRN Losartan [Cozaar] 25 mg PO DAILY 03/26/16 Multivitamin [Multi-Day Vitamins] 1 each PO DAILY Polyethylene Glycol 1000 [Polyethylene Glycol] 500 gm MC PRN Pregabalin [Lyrica] 25 mg PO BID 03/26/16 Promethazine [Phenergan] 12.5 mg PO Q4HP PRN Sennosides/Docusate Sodium [Senna-Docusate Sodium Tablet] 1 each PO PRN amLODIPine [Norvasc] 10 mg PO QDAY 03/26/16 [ busPIRone [Buspar] 10 mg PO BID 03/26/16 Please STOP diphenhydrAMINE [Benadryl] 25 mg PO Q4HP PRN 04/30/16 [History Confirmed 10/20/16 Last Taken 05/01/16] Aspirin 81 mg a day Cane 1 each MC 3-4XD #1 each 05/02/16 [Rx Confirmed 10/20/16 Last Taken Unknown] Please stop: Nitrofurantoin Macrocrystal [Macrodantin] 100 mg PO BID Ondansetron HCl [Zofran ODT] 4 mg SL Q4-6HP PRN Prescriptions: Lidocaine [Lidoderm] 1 patch TOPICAL DAILY@1000 PRN #30 patch PRN Reason: Pain Other Amb Orders: Physical Therapy at Discharge - General Location: Determined By 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 Toilet Riser Discharge Order Location: Determined By Patient - Problem Maintenance (1) Hypertension Status: Chronic (2) Tachycardia with greater than 160 beats per minute Status: Acute (3) Colitis Status: Acute (4) Sepsis Status: Acute Qualifiers: Sepsis type: sepsis due to unspecified organism Qualified Code(s): A41.9 - Sepsis, unspecified organism - Follow up Plan Follow up with: Mohan Hamm [Primary Care Provider] - 10/29/16 4:15 pm Kannan Monaco MD [Physician] - Disposition: Home Health Service Prognosis: Good Rehab Potential: Good Overall status at discharge: patient is progressing back to baseline Medical - DS: Qual - VTE Deep Vein Thrombosis/Pulmonary Embolism Present on Admission: No
--- NOTE | 2016-10-30 12:25 | EKG Interpretations ---
3:11 PM FINDINGS: 1. Sinus tachycardia at 100 beats per minute. 2. Diffuse ST changes, possibly ischemic. 3. Atrial fibrillation has resolved. [email or web address] Job ID: [id number] Doc ID: [id number] Claude Bonilla MD
--- NOTE | 2016-10-30 12:25 | EKG Interpretations ---
7:15 AM FINDINGS: 1. Sinus rhythm with a burst of what appears to be atrial fibrillation. 2. Average heart rate appears to be approximately 90 beats per minute with variability. 3. There are diffuse non-specific ST-T wave abnormalities. [email or web address] Job ID: [id number] Doc ID: [id number] Claude Bonilla MD
--- NOTE | 2016-10-30 12:25 | EKG Interpretations ---
FINDINGS: 1. The rhythm is sinus tachycardia at 100 beats per minute. 2. There is incomplete right bundle branch block. 3. Ischemic appearing ST changes are noted in the lateral leads with ST depression. 4. There is slight left axis deviation, not diagnostic of left anterior fascicular block. [email or web address] Job ID: [id number] Doc ID: [id number] Claude Bonilla MD
== END 2016-10-24 16:30 | disposition home health service (06) | DRG 871 ==
LOC: ED 20:44 → ICU 10-21 02:48 → MEDSUR 10-23 16:48
PROVIDERS: ADMIT Internal Medicine; ATTEND Internal Medicine

== ENCOUNTER 2024-03-30 17:00 | Inpatient (IN) ==
[2024-03-30 17:59] LABS: Basophils # (Auto) 0.01 K/mcL (0.00-0.30); Basophils % (Auto) 0 % (0.0-2.0); Eosinophils # (Auto) 0 K/mcL (0.00-0.70); Eosinophils % (Auto) 0 % (0.0-7.0); Hemoglobin 14.8 g/dL (11.2-15.7); Lymphocytes # (Auto) 0.72 K/mcL (1.50-4.80); Lymphocytes % (Auto) 3.1 % (15.5-49.0); Mean Corpuscular HGB Conc 32.2 g/dL (31.0-36.0); Mean Platelet Volume 10.1 fL (8.8-12.5); Monocytes # (Auto) 0.94 K/mcL (0.10-0.90); Monocytes % (Auto) 4.1 % (1.0-12.0); Neutrophils % (Auto) 91.8 % (38.0-78.0); Platelet Count 267 K/mcL (140-440); RBC 5.54 M/mcL (3.59-5.38); Red Cell Distribution Width 15.3 % (11.5-14.5)
[2024-03-30] MEDS: 0.9 % SODIUM CHLORIDE 1,000 ML IV ONE ×2 (18:08→19:31)
[2024-03-30 18:20] LABS: ALT/SGPT 26 U/L (<40); AST/SGOT 27 U/L (<32); Albumin 3.5 gm/dL (3.2-5.2); Albumin/Globulin Ratio 0.9 (1.0-2.3); Alkaline Phosphatase 133 U/L (39-117); Bilirubin,Total 1.1 mg/dL (0.1-1.0); Blood Urea Nitrogen 54 mg/dL (8-23); Carbon Dioxide 15 mmol/L (22-30); Chloride 112 mmol/L (96-108); Globulin 3.7 gm/dL (2.2-3.7); Glomerular Filtration Rate 26; Glucose 138 mg/dL (70-105); Potassium 3.6 mmol/L (3.3-5.1); Sodium 147 mmol/L (133-145)
[2024-03-30 18:51] LABS: Appearance,Urine Cloudy (Clear); Bacteria,Urine Many /hpf (0); Bilirubin,Urine Small mg/dL (Negative); Color,Urine Yellow; Glucose,Urine (UA) Negative (Negative); Ketones,Urine Negative (Negative); Leukocyte Esterase,Urine Moderate /uL (Negative); Nitrate,Urine Negative (Negative); Protein,Urine 100 mg/dL (Negative); Specific Gravity,Urine 1.015 (1.000-1.035); Urine Blood Negative ery/mcL (Negative); Urine RBC 1 /hpf (0-3); Urine Squamous Epithelial Cell 16 /hpf (0-4); Urine WBC 20 /hpf (0-4)
[2024-03-30] MEDS: cefTRIAXone 1 GM VIAL IV ONE (19:31)
[2024-03-30] MEDS: LACTATED RINGERS 1,000 ML IV SCH (20:36)
[2024-03-30] MEDS ORDERED: IPRATROPIUM/ALBUTEROL 3 ML AMPUL.NEB NEB PRN (21:50)
[2024-03-30] MEDS: 0.9 % SODIUM CHLORIDE 10 ML SYRINGE IV SCH (22:04)
[2024-03-30] MEDS: SENNOSIDES 1 TABLET PO SCH (22:47)
[2024-03-30] MEDS: DOCUSATE SODIUM 100 MG CAPSULE PO SCH (22:47)
[2024-03-30] MEDS: MELATONIN 3 MG TABLET PO SCH (23:49)
[2024-03-30] MEDS: MELATONIN 3 MG TABLET PO ONE (23:50)
[2024-03-31] MEDS: ACETAMINOPHEN 325 MG TABLET PO PRN (00:41)
[2024-03-31 07:04] LABS: Basophils # (Auto) 0.02 K/mcL (0.00-0.30); Basophils % (Auto) 0.1 % (0.0-2.0); Eosinophils # (Auto) 0 K/mcL (0.00-0.70); Eosinophils % (Auto) 0 % (0.0-7.0); Hemoglobin 13.8 g/dL (11.2-15.7); Lymphocytes # (Auto) 1.12 K/mcL (1.50-4.80); Lymphocytes % (Auto) 5.3 % (15.5-49.0); Mean Cell Volume 85.3 fL (80.0-100.0); Mean Corpuscular HGB Conc 32.1 g/dL (31.0-36.0); Mean Platelet Volume 10.6 fL (8.8-12.5); Monocytes # (Auto) 0.93 K/mcL (0.10-0.90); Monocytes % (Auto) 4.4 % (1.0-12.0); Neutrophils % (Auto) 89.4 % (38.0-78.0); Platelet Count 243 K/mcL (140-440); RBC 5.04 M/mcL (3.59-5.38); Red Cell Distribution Width 15.4 % (11.5-14.5); WBC 21.1 K/mcL (4.5-11.0)
[2024-03-31 07:12] LABS: ALT/SGPT 21 U/L (<40); AST/SGOT 23 U/L (<32); Albumin 3.1 gm/dL (3.2-5.2); Alkaline Phosphatase 135 U/L (39-117); Bilirubin,Direct 0.4 mg/dL (<0.3); Bilirubin,Total 0.6 mg/dL (0.1-1.0); Blood Urea Nitrogen 45 mg/dL (8-23); Calcium 9.4 mg/dL (8.6-10.4); Carbon Dioxide 17 mmol/L (22-30); Chloride 118 mmol/L (96-108); Glomerular Filtration Rate 35; Glucose 108 mg/dL (70-105); Lactate Dehydrogenase 220 U/L (135-225); Phosphorous 3.1 mg/dL (2.5-4.5); Potassium 3.3 mmol/L (3.3-5.1); Sodium 151 mmol/L (133-145); Triglycerides 186 mg/dL (<150); Uric Acid 5.1 mg/dL (2.5-8.0)
[2024-03-31] MEDS: 0.45 % SODIUM CHLORIDE 1,000 ML IV SCH ×2 (08:20)
[2024-03-31] MEDS: cefTRIAXone 1 GM VIAL IV SCH (10:17)
[2024-03-31] MEDS: ENOXAPARIN 30 MG/0.3 ML SYRINGE SQ SCH (10:17)
[2024-03-31 11:57] LABS: Sodium 149 mmol/L (133-145)
[2024-03-31] MEDS ORDERED: traMADol 50 MG TABLET PO SCH (13:00)
[2024-03-31] MEDS: METHOCARBAMOL 750 MG TABLET PO SCH (14:24)
[2024-03-31] MEDS: DULoxetine 30 MG CAPSULE PO SCH (14:24)
[2024-03-31] MEDS: DORZOLAMIDE 2% OPHTH DROPS 10ML BOTTLE OU SCH (14:24)
[2024-03-31] MEDS: BRIMONIDINE OPHTH DROPS 1 GTT BOTTLE 5ML OU SCH (20:10)
[2024-03-31] MEDS: Budesonide-Glycopyr-Formoterol [Breztri Aerosphere] 160MCG-9MCG-4.8MCG/ACT Inhaler INH SCH (20:10)
[2024-03-31] MEDS: TRAVOPROST OPHTH DROPS BOTTLE 2.5ML OU SCH (20:11)
[2024-04-01 06:16] LABS: Basophils # (Auto) 0.01 K/mcL (0.00-0.30); Basophils % (Auto) 0.1 % (0.0-2.0); Eosinophils # (Auto) 0.13 K/mcL (0.00-0.70); Eosinophils % (Auto) 0.7 % (0.0-7.0); Hematocrit 43.9 % (34.1-44.9); Hemoglobin 13.5 g/dL (11.2-15.7); Lymphocytes # (Auto) 1.08 K/mcL (1.50-4.80); Mean Cell Volume 87.5 fL (80.0-100.0); Mean Corpuscular HGB Conc 30.8 g/dL (31.0-36.0); Mean Platelet Volume 10.1 fL (8.8-12.5); Monocytes # (Auto) 0.84 K/mcL (0.10-0.90); Monocytes % (Auto) 4.6 % (1.0-12.0); Neutrophils % (Auto) 87.9 % (38.0-78.0); Platelet Count 214 K/mcL (140-440); RBC 5.02 M/mcL (3.59-5.38); Red Cell Distribution Width 15.4 % (11.5-14.5); WBC 18.1 K/mcL (4.5-11.0)
[2024-04-01 06:33] LABS: ALT/SGPT 16 U/L (<40); AST/SGOT 21 U/L (<32); Albumin 2.8 gm/dL (3.2-5.2); Alkaline Phosphatase 114 U/L (39-117); Bilirubin,Direct 0.3 mg/dL (<0.3); Bilirubin,Total 0.6 mg/dL (0.1-1.0); Blood Urea Nitrogen 26 mg/dL (8-23); Calcium 8.7 mg/dL (8.6-10.4); Carbon Dioxide 15 mmol/L (22-30); Chloride 117 mmol/L (96-108); Globulin 2.9 gm/dL (2.2-3.7); Glomerular Filtration Rate 46; Glucose 91 mg/dL (70-105); Lactate Dehydrogenase 246 U/L (135-225); Phosphorous 2.4 mg/dL (2.5-4.5); Potassium 2.8 mmol/L (3.3-5.1); Sodium 147 mmol/L (133-145); Triglycerides 182 mg/dL (<150); Uric Acid 3.9 mg/dL (2.5-8.0)
[2024-04-01] MEDS: POTASSIUM CHLORIDE 20 MEQ TABLET PO ONE ×2 (07:24→11:37)
[2024-04-01] MEDS: ONDANSETRON 4 MG/2 ML VIAL IV PRN (07:24)
[2024-04-01] MEDS: OMEPRAZOLE 20 MG CAPSULE PO SCH (07:24)
[2024-04-01] MEDS: 0.45 % SODIUM CHLORIDE 1,000 ML IV SCH ×2 (07:26→09:20)
[2024-04-01] MEDS: POTASSIUM CHLORIDE 40 MEQ in DEXTROSE 5% IN WATER 500 ML IV ONE (07:50)
[2024-04-01] MEDS: CETIRIZINE 10 MG TABLET PO SCH (09:20)
[2024-04-01] MEDS: amLODIPine 5 MG TABLET PO SCH (09:20)
[2024-04-01] MEDS: METHYL SALICYLATE TOPICAL SCH (09:21)
[2024-04-01] MEDS: LOSARTAN 50 MG TABLET PO SCH (09:21)
[2024-04-01] MEDS: EZETIMIBE 10 MG TABLET PO SCH (09:21)
[2024-04-01] MEDS: VIT A,C & E/LUTEIN/MINERALS TABLET PO SCH (09:21)
[2024-04-01] MEDS: MENTHOL TOPICAL SCH (09:21)
[2024-04-01] MEDS: POTASSIUM PHOSPHATE 20 MEQ in DEXTROSE 5% IN WATER 250 ML IV ONE (12:46)
[2024-04-01] MEDS: DEXTROSE 5% IN WATER 1,000 ML IV ONE (12:59)
[2024-04-01 15:03] LABS: Potassium 3.6 mmol/L (3.3-5.1)
[2024-04-01 16:24] LABS: Sodium 139 mmol/L (133-145)
[2024-04-02 06:24] LABS: Basophils # (Auto) 0.01 K/mcL (0.00-0.30); Basophils % (Auto) 0.1 % (0.0-2.0); Eosinophils # (Auto) 0.38 K/mcL (0.00-0.70); Hematocrit 38.7 % (34.1-44.9); Hemoglobin 12.4 g/dL (11.2-15.7); Lymphocytes # (Auto) 1.84 K/mcL (1.50-4.80); Lymphocytes % (Auto) 14.7 % (15.5-49.0); Mean Cell Volume 84.3 fL (80.0-100.0); Mean Platelet Volume 10.1 fL (8.8-12.5); Monocytes # (Auto) 0.69 K/mcL (0.10-0.90); Monocytes % (Auto) 5.5 % (1.0-12.0); Neutrophils % (Auto) 75.3 % (38.0-78.0); Platelet Count 229 K/mcL (140-440); RBC 4.59 M/mcL (3.59-5.38); Red Cell Distribution Width 15.4 % (11.5-14.5); WBC 12.5 K/mcL (4.5-11.0)
[2024-04-02 07:07] LABS: ALT/SGPT 21 U/L (<40); AST/SGOT 23 U/L (<32); Albumin/Globulin Ratio 1.1 (1.0-2.3); Alkaline Phosphatase 99 U/L (39-117); Bilirubin,Direct 0.2 mg/dL (<0.3); Bilirubin,Total 0.4 mg/dL (0.1-1.0); Blood Urea Nitrogen 16 mg/dL (8-23); Calcium 8.9 mg/dL (8.6-10.4); Carbon Dioxide 19 mmol/L (22-30); Chloride 113 mmol/L (96-108); Globulin 2.7 gm/dL (2.2-3.7); Glomerular Filtration Rate 52; Glucose 90 mg/dL (70-105); Lactate Dehydrogenase 182 U/L (135-225); Phosphorous 2.6 mg/dL (2.5-4.5); Potassium 4.1 mmol/L (3.3-5.1); Sodium 145 mmol/L (133-145); Triglycerides 196 mg/dL (<150); Uric Acid 3.3 mg/dL (2.5-8.0)
[2024-04-03 10:01] LABS: Basophils # (Auto) 0.01 K/mcL (0.00-0.30); Basophils % (Auto) 0.1 % (0.0-2.0); Eosinophils # (Auto) 0.35 K/mcL (0.00-0.70); Hematocrit 40.3 % (34.1-44.9); Hemoglobin 13.1 g/dL (11.2-15.7); Lymphocytes # (Auto) 1.48 K/mcL (1.50-4.80); Lymphocytes % (Auto) 12.5 % (15.5-49.0); Mean Cell Volume 83.8 fL (80.0-100.0); Mean Corpuscular HGB Conc 32.5 g/dL (31.0-36.0); Mean Platelet Volume 9.6 fL (8.8-12.5); Monocytes # (Auto) 0.53 K/mcL (0.10-0.90); Monocytes % (Auto) 4.5 % (1.0-12.0); Platelet Count 262 K/mcL (140-440); RBC 4.81 M/mcL (3.59-5.38); Red Cell Distribution Width 15.4 % (11.5-14.5); WBC 11.9 K/mcL (4.5-11.0)
[2024-04-03 10:16] LABS: ALT/SGPT 59 U/L (<40); AST/SGOT 69 U/L (<32); Albumin 3.2 gm/dL (3.2-5.2); Albumin/Globulin Ratio 1.1 (1.0-2.3); Alkaline Phosphatase 106 U/L (39-117); Bilirubin,Direct 0.2 mg/dL (<0.3); Bilirubin,Total 0.4 mg/dL (0.1-1.0); Blood Urea Nitrogen 15 mg/dL (8-23); Calcium 8.8 mg/dL (8.6-10.4); Carbon Dioxide 22 mmol/L (22-30); Chloride 109 mmol/L (96-108); Glomerular Filtration Rate 52; Glucose 110 mg/dL (70-105); Lactate Dehydrogenase 191 U/L (135-225); Phosphorous 3.3 mg/dL (2.5-4.5); Potassium 4.1 mmol/L (3.3-5.1); Sodium 142 mmol/L (133-145); Triglycerides 234 mg/dL (<150); Uric Acid 3.4 mg/dL (2.5-8.0)
[2024-04-04] MEDS: cefTRIAXone 1 GM VIAL IM ONE (10:35)
[2024-04-04 12:42] VITALS: TEMP 97.8; O2SAT 95
== END 2024-04-04 14:10 | DRG 871 ==
LOC: ED 17:00 → ICU 21:38 → MEDSUR 04-01 15:33
PROVIDERS: ADMIT Student in an Organized Health Care Education/Training Program; ATTEND Internal Medicine